=== PATIENT | male | born 1995 | race Caucasian/White ===

== ENCOUNTER 2020-05-06 07:35 | Emergency (ER) | payer OTHER, SELFPAY ==
[2020-05-06 07:36] VITALS: BP 131/65; PULSE 59; RESP 16; TEMP 36.7; O2SAT 99; BMI 23.7
--- NOTE | 2020-05-06 08:13 | ECG_ITS ---
Test Reason : SYNCOPE Blood Pressure : / mmHG Vent. Rate : 048 BPM Atrial Rate : 048 BPM P-R Int : 122 ms QRS Dur : 090 ms QT Int : 466 ms P-R-T Axes : 067 061 040 degrees QTc Int : 416 ms Sinus bradycardia Nonspecific ST abnormality Abnormal ECG No previous ECGs available Referred By: Kassy Monique Electronically Signed By:THAD BERNAL MD
--- NOTE | 2020-05-06 08:14 | ED_ITS ---
HPI - General Adult General Chief complaint: Syncope Stated complaint: syncope Time Seen by Provider: 05/06/20 07:44 Source: patient Mode of arrival: ambulatory Limitations: no limitations History of Present Illness HPI narrative: Patient comes emergency room complaining of a syncopal episode 2 days ago. Patient states he did not eat all day 2 days ago, later on the day he tried eating something before restarting he has syncopal episode. Patient states that he does not believe he hit his head. Patient denies any headache, no blurry vision. Patient states that prior to passing out, he felt shaky, sweaty and remembers blacking out. When he woke up, EMS checked his blood pressure and blood sugar which were within normal limits. Patient declined to come to the hospital at that time. Patient states over last 2 days he has been feeling weak, denies any respiratory symptoms, no vomiting or diarrhea. Patient states that he smokes every day, but he has not been feeling well and therefore not smoking. At this time, patient denies chest pain, shortness of breath, coughing, abdominal pain, no nausea vomiting or diarrhea. Patient overall feeling weak. Patient denies feeling dizzy or weak after standing or sitting up. MD complaint: Weakness, syncopal episode Related Data Previous Rx's Medication Instructions Recorded ondansetron HCl [Zofran] 4 mg PO Q6H PRN #10 tab 05/06/20 Allergies Allergy/AdvReac Type Severity Reaction Status Date / Time No Known Allergies Allergy Verified 05/06/20 07:39 Review of Systems Review of Systems: Constitutional : No Weight loss, No Fever, No Chills, No Night Sweats, complaining of generalized fatigue, no malaise ENT/Mouth : No Hearing loss, No Ear Pain, No Nasal Congestion, No Sinus Pain, No Hoarseness, No sore throat, No Rhinorrhea, No Swallowing Difficulty Eyes: No Eye Pain, No Swelling, No Redness, No Foreign Body, No Discharge, No Vision Changes Cardiovascular : No Chest Pain, No SOB, No Dyspnea on Exertion, No Orthopnea, No Edema, No Palpitations Respiratory : No Cough, No Sputum, No Wheezing, No Smoke Exposure, No Dyspnea Gastrointestinal : No Nausea, No Vomiting, No Diarrhea, No Constipation, No abdominal Pain, No Hematochezia, No Melena Genitourinary : no irregular bleeding, No Dysuria, No Urinary Frequency, No Hematuria, No Urinary Incontinence, No Urgency, No Flank Pain, No Urinary Flow Changes, No Hesitancy Musculoskeletal : No joint pain, No Myalgias, No Joint Swelling Skin : No Skin Lesions, No rash Neuro : Complaining of generalized weakness, No Numbness, No Paresthesias, complaining of 1 episode of syncope approximately 48 hours ago Psych : No Anxiety/Panic, No Depression, No SI/HI/AH/VH, No Social Issues, Heme/Lymph: No Bruising, No Bleeding,No Lymphadenopathy Endocrine : No Polyuria, No Polydipsia, No Temperature Intolerance [facility] Past Medical History Medical History (Updated 05/06/20 @ 09:17 by Kassy Monique MD) Marijuana abuse, continuous No known health problems Social History Social History Alcohol intake: never Smoking Status: Never smoker Use of substances other than those prescribed or required for medical reasons: Yes Substance Use Type: Marijuana Advance Directives: No Advance Directives Information Provided: No Physical Exam Vital Signs: Vital Signs: Last Vital Signs Temp 98.0 F 05/06/20 07:36 Pulse 59 05/06/20 07:36 Resp 16 05/06/20 07:36 BP 131/65 05/06/20 07:36 Pulse Ox 99 05/06/20 07:36 Body Mass Index 23.7 Appearance: Alert. Oriented X3. No acute distress. Eyes: Pupils equal, round and reactive to light. ENT: Pharynx normal. Neck: Normal inspection. Neck supple. No lymph nodes noted. No crepitus CVS: Normal heart rate and rhythm. Pulses normal. Normal S1 and S2 Respiratory: No respiratory distress. Breath sounds normal. No Wheezing. No rales Abdomen: Soft and nontender. No rigidity. No distention. good BS x4 Skin: Skin warm and dry. Normal skin color. Normal skin turgor. Extremities: No lower extremity edema. No lower extremity edema. No Lacerations. No Rash Neuro: Oriented X 3. No motor deficit. No sensory deficit. Moving all extermities. No slurred speech. Course Course Course Narrative: Patient was tested for COVID-19. Results pending. Patient's labs stable. Patient's syncopal episode was likely because he did not eat earlier that day. Since then he has not had recurrent symptoms or syncopal episodes. Medical Decision Making Lab Data Result diagrams: 05/06/20 08:27 05/06/20 08:27 Labs: Lab Results 05/06/20 05/06/20 05/06/20 Range/Units 08:27 08:27 08:33 WBC 8.9 (4.8-10.8) X10*3/uL RBC 5.15 (4.60-5.80) X10*6/uL Hgb 14.8 (14.0-18.0) g/dl Hct 44.6 (42-52) % MCV 86.6 (80-98) fL MCH 28.7 (27.0-33.0) pg MCHC 33.2 (31.0-36.0) g/dl RDW 12.1 (11.0-16.0) % Plt Count 204 (160-400) X10*3/uL MPV 11.2 (9.4-12.4) fL Immature Gran % (Auto) 0.2 (0.0-0.4) % Neut % (Auto) 74.3 H (45-73) % Lymph % (Auto) 17.6 L (20-40) % [place] % (Auto) 6.0 (2-11) % Eos % (Auto) 1.7 (0-4) % Baso % (Auto) 0.2 (0-2) % Lymph # (Auto) 1.6 (1.2-4.9) X10*3/uL [place] # (Auto) 0.5 (0.1-1.2) X10*3/uL Eos # (Auto) 0.2 (0.0-0.4) X10*3/uL Baso # (Auto) 0.0 (0.0-0.2) X10*3/uL Abs Immat Gran (auto) 0.02 (0.00-0.03) X10*3/uL Absolute Neuts (auto) 6.6 (2.0-8.3) X10*3/uL Absolute Nucleated RBC 0.000 (0.0-0.012) X10*3/uL Nucleated RBC % (auto) 0.0 (0.0-0.2) /100WBC Sodium 141 (135-145) mmol/L Potassium 3.9 (3.3-5.1) mmol/l Chloride 105 (96-108) mmol/L Carbon Dioxide 26 (22-29) mmol/L Anion Gap 14 (12-20) BUN 12 (9-16) mg/dL Creatinine 0.84 (0.5-1.4) mg/dL Estim Creat Clear Calc 155.8 Estimated GFR > 60 Random Glucose 93 (60-115) mg/dL Calcium 9.5 (8.4-10.2) mg/dL Urine Color DARK YELLOW Urine Appearance CLEAR Urine pH 5.5 (5.0-8.0) Ur Specific [place] >= 1.030 H (1.005-1.025) Urine Protein TRACE (NEG-TRACE) MG/DL Urine Glucose (UA) NEG (NEG) MG/DL Urine Ketones NEG (NEG) MG/DL Urine Blood NEG (NEG) Urine Nitrite NEG (NEG) Ur Leukocyte Esterase NEG (NEG) ECG Data Attestation: I personally reviewed and interpreted this ECG as follows: (Heart rate 48, sinus bradycardia, QTC 416, no ST segment depressions or elevations) Discharge Plan Discharge Clinical Impression: Syncopal episodes Qualifiers: Syncope type: unspecified Qualified Code(s): R55 - Syncope and collapse Patient Disposition: Home, Self-Care Instructions: Syncope (ED) Additional Instructions: Please follow-up with your primary care physician tomorrow. If you have any worsening or new symptoms, please return to the emergency room or call 911 Prescriptions: New ondansetron HCl [Zofran] 4 mg tablet 4 mg PO Q6H PRN (Reason: nausea and vomiting) Qty: 10 RF: 0 Stand Alone Forms: Work/School Release
[2020-05-06 08:42] LABS: Basophils Percent Auto 0.2 % (0-2); Eosinophils Absolute Auto 0.2 X10*3/uL (0.0-0.4); Eosinophils Percent Auto 1.7 % (0-4); Hematocrit 44.6 % (42-52); Hemoglobin 14.8 g/dl (14.0-18.0); Imm Gran Abs Auto 0.02 X10*3/uL (0.00-0.03); Imm Gran Pct Auto 0.2 % (0.0-0.4); Lymphocytes Absolute Auto 1.6 X10*3/uL (1.2-4.9); Lymphocytes Percent Auto 17.6 % (20-40); MANUAL DIFF FLAG NO; Mean Corpuscular HGB Conc 33.2 g/dl (31.0-36.0); Mean Corpuscular Hemoglobin 28.7 pg (27.0-33.0); Mean Corpuscular Volume 86.6 fL (80-98); Mean Platelet Volume 11.2 fL (9.4-12.4); Monocytes Absolute Auto 0.5 X10*3/uL (0.1-1.2); Neutrophils Absolute Auto 6.6 X10*3/uL (2.0-8.3); Neutrophils Percent Auto 74.3 % (45-73); Platelet Count 204 X10*3/uL (160-400); Red Blood Count 5.15 X10*6/uL (4.60-5.80); Red Cell Distribution Width 12.1 % (11.0-16.0); White Blood Count 8.9 X10*3/uL (4.8-10.8)
[2020-05-06 08:47] LABS: Glucose Urine UA NEG (NEG); Leukocyte Esterase Urine NEG (NEG); Nitrite Urine NEG (NEG); PH 5.5 (5.0-8.0); Specific Gravity - Urine >= 1.030 (1.005-1.025); Urine Blood NEG (NEG); Urine Ketones NEG (NEG); Urine Protein TRACE MG/DL (NEG-TRACE)
[2020-05-06 08:53] LABS: Appearance Urine CLEAR; Color Urine DARK YELLOW
[2020-05-06 09:13] LABS: Anion Gap 14 (12-20); Blood Urea Nitrogen 12 mg/dL (9-16); Calcium 9.5 mg/dL (8.4-10.2); Carbon Dioxide 26 mmol/L (22-29); Chloride 105 mmol/L (96-108); Creatinine Clr Calc Pharmacy 155.8; Estimated Glomerular Filt Rate > 60; Glucose Random 93 mg/dL (60-115); Potassium 3.9 mmol/l (3.3-5.1); Sodium 141 mmol/L (135-145)
[2020-05-06 09:16] LABS: Amphetamine Screen Urine Not Detected (Not Detect); Barbiturates, Urine Not Detected (Not Detect); Benzodiazepines Screen Urine Not Detected (Not Detect); Cannabinoid Screen Urine POSITIVE (Not Detect); Cocaine Screen Urine Not Detected (Not Detect); Opiate Screen Urine Not Detected (Not Detect); Phencyclidine Screen Urine Not Detected (Not Detect)
== END 2020-05-06 09:36 | disposition home or self-care (01) ==
PROVIDERS: Emergency Provider Emergency Medicine
DX: R55 Syncope and collapse (principal); Z79.899 Other long term (current) drug therapy
CPT/HCPCS: 36415; 80048; 80307; 81003; 85025; 93005; 99283; U0003

== ENCOUNTER 2020-07-23 23:37 | Emergency (ER) | payer OTHER, SELFPAY ==
[2020-07-23 23:42] VITALS: BP 144/79; PULSE 75; RESP 17; TEMP 36.7; O2SAT 98; BMI 23.7
--- NOTE | 2020-07-24 00:42 | ED.URI ---
HPI - URI/Sore Throat General Chief Complaint: Upper Respiratory Symptoms Stated Complaint: SOB Time Seen by Provider: 07/24/20 00:31 History of Present Illness HPI Narrative: 25 years old presents today with cough and congestion upper respiratory symptoms. Patient has been having symptoms for last 1-2 days. No nausea no vomiting. No change in smell with fleas. Patient from home. Positive history of asthma. Related Data Previous Rx's Medication Instructions Recorded ondansetron HCl [Zofran] 4 mg PO Q6H PRN #10 tab 05/06/20 Allergies Allergy/AdvReac Type Severity Reaction Status Date / Time No Known Allergies Allergy Verified 07/23/20 23:52 Review of Systems Review of Systems: Constitutional: No Weight loss, No Fever, No Chills, No Night Sweats, No Fatigue, No Malaise ENT/Mouth: No Hearing loss, No Ear Pain, No Nasal Congestion, No Sinus Pain, No Hoarseness, No sore throat, positive Rhinorrhea, No Swallowing Difficulty Eyes: No Eye Pain, No Swelling, No Redness, No Foreign Body, No Discharge, No Vision Changes Cardiovascular: No Chest Pain, No SOB, No Dyspnea on Exertion, No Orthopnea, No Edema, No Palpitations Respiratory: No Cough, No Sputum, No Wheezing, No Smoke Exposure, No Dyspnea Gastrointestinal: No Nausea, No Vomiting, No Diarrhea, No Constipation, No abdominal Pain, No Hematochezia, No Melena Genitourinary: no irregular bleeding, No Dysuria, No Urinary Frequency, No Hematuria, No Urinary Incontinence, No Urgency, No Flank Pain, No Urinary Flow Changes, No Hesitancy Musculoskeletal: No joint pain, No Myalgias, No Joint Swelling Skin: No Skin Lesions, No rash Neuro: No Weakness, No Numbness, No Paresthesias, No Loss of Consciousness, No Dizziness, No Headache Psych: No Anxiety/Panic, No Depression, No SI/HI/AH/VH, No Social Issues, Heme/Lymph: No Bruising, No Bleeding,No Lymphadenopathy Endocrine: No Polyuria, No Polydipsia, No Temperature Intolerance [facility] Past Medical History Attestation statement: The following information was validated with the patient. Medical History Asthma Marijuana abuse, continuous No known health problems Social History Social History Alcohol intake: never Smoking Status: Never smoker Substance Use Type: Marijuana Advance Directives: No Physical Exam Vital Signs: Vital Signs: Last Vital Signs Temp 98.1 F 07/23/20 23:42 Pulse 75 07/23/20 23:42 Resp 17 07/23/20 23:42 BP 144/79 H 07/23/20 23:42 Pulse Ox 98 07/23/20 23:42 Body Mass Index 23.7 Constitutional: No Weight loss, No Fever, No Chills, No Night Sweats, No Fatigue, No Malaise ENT/Mouth: No Hearing loss, No Ear Pain, No Nasal Congestion, No Sinus Pain, No Hoarseness, No sore throat, No Rhinorrhea, No Swallowing Difficulty Eyes: No Eye Pain, No Swelling, No Redness, No Foreign Body, No Discharge, No Vision Changes Cardiovascular: No Chest Pain, No SOB, No Dyspnea on Exertion, No Orthopnea, No Edema, No Palpitations Respiratory: No Cough, No Sputum, No Wheezing, No Smoke Exposure, No Dyspnea Gastrointestinal: No Nausea, No Vomiting, No Diarrhea, No Constipation, No abdominal Pain, No Hematochezia, No Melena Genitourinary: no irregular bleeding, No Dysuria, No Urinary Frequency, No Hematuria, No Urinary Incontinence, No Urgency, No Flank Pain, No Urinary Flow Changes, No Hesitancy Musculoskeletal: No joint pain, No Myalgias, No Joint Swelling Skin: No Skin Lesions, No rash Neuro: No Weakness, No Numbness, No Paresthesias, No Loss of Consciousness, No Dizziness, No Headache Psych: No Anxiety/Panic, No Depression, No SI/HI/AH/VH, No Social Issues, Heme/Lymph: No Bruising, No Bleeding,No Lymphadenopathy Endocrine: No Polyuria, No Polydipsia, No Temperature Intolerance MDM - URI/Sore Throat MDM Narrative Medical decision making narrative: Patient's lungs are clear. O2 sat 99% on room air. Was sent off COVID test. Will have patient follow strict home quarantine into all symptom has resolved. Currently in stable condition. Discharge Plan Discharge Clinical Impression: Upper respiratory infection, COVID-19 Patient Disposition: Home, Self-Care Instructions: COVID-19 (Coronavirus Disease 2019) (ED), Upper Respiratory Infection (ED) Prescriptions: No Action ondansetron HCl [Zofran] 4 mg tablet 4 mg PO Q6H PRN (Reason: nausea and vomiting) Qty: 10 RF: 0 Referrals: Physician,None [Primary Care Provider] - 2 days
[2020-07-24 01:23] LABS: COVID-19 Test Negative (Negative); IDNOW Serial# 9DD0AD1C
== END 2020-07-24 01:14 | disposition home or self-care (01) ==
PROVIDERS: Emergency Provider Emergency Medicine Emergency Medical Services
DX: J06.9 Acute upper respiratory infection, unspecified (principal); Z20.822 Contact with and (suspected) exposure to COVID-19; J45.909 Unspecified asthma, uncomplicated; F12.10 Cannabis abuse, uncomplicated
CPT/HCPCS: 36415; 87635; 99283

== ENCOUNTER 2020-09-02 19:35 | Emergency (ER) | payer OTHER, SELFPAY ==
--- NOTE | ~2020-09-02 | XR_ITS ---
EXAMINATION: XR HAND, LEFT CLINICAL INFORMATION: Injury COMPARISON: None available at the time of this dictation. TECHNIQUE: Frontal lateral obliques views of the hand were obtained. FINDINGS: There is mildly displaced fracture of the base of the fifth metacarpal extending into the articular surface of the carpal metacarpal joint. No other fractures. Bone alignments otherwise satisfactory. XR/XR hand wrist LT IMPRESSION: Mildly displaced intra-articular fracture at the base of the fifth metacarpal.
[2020-09-02 19:38] VITALS: BP 122/62; PULSE 75; RESP 18; TEMP 37.2; O2SAT 97; BMI 22.1
--- NOTE | 2020-09-02 20:41 | ED.EXTPRO ---
HPI - Extremity Problem General Chief complaint: Extremity Injury, Upper Stated complaint: Hand injury Time Seen by Provider: 09/02/20 20:32 Source: patient Mode of arrival: ambulatory Limitations: no limitations History of Present Illness HPI Narrative: Patient comes to emergency room complaining of left hand pain. Patient states earlier today, he lost his temper and punched a metal door. Patient states the pain is on the dorsal aspect of the hand, 4th and 5th finger. No lacerations, no abrasions. Patient did not take any medication for pain control prior to arrival. MD Complaint: extremity pain Related Data Previous Rx's Medication Instructions Recorded ondansetron HCl [Zofran] 4 mg PO Q6H PRN #10 tab 05/06/20 ibuprofen 600 mg PO TID PRN #14 tab 09/02/20 tramadol 50 mg PO BID PRN #7 tab 09/02/20 Allergies Allergy/AdvReac Type Severity Reaction Status Date / Time No Known Allergies Allergy Verified 09/02/20 19:38 Review of Systems Review of Systems: Constitutional : No Weight loss, No Fever, No Chills, No Night Sweats, No Fatigue, No Malaise ENT/Mouth : No Hearing loss, No Ear Pain, No Nasal Congestion, No Sinus Pain, No Hoarseness, No sore throat, No Rhinorrhea, No Swallowing Difficulty Eyes: No Eye Pain, No Swelling, No Redness, No Foreign Body, No Discharge, No Vision Changes Cardiovascular : No Chest Pain, No SOB, No Dyspnea on Exertion, No Orthopnea, No Edema, No Palpitations Respiratory : No Cough, No Sputum, No Wheezing, No Smoke Exposure, No Dyspnea Gastrointestinal : No Nausea, No Vomiting, No Diarrhea, No Constipation, No abdominal Pain, No Hematochezia, No Melena Genitourinary : no irregular bleeding, No Dysuria, No Urinary Frequency, No Hematuria, No Urinary Incontinence, No Urgency, No Flank Pain, No Urinary Flow Changes, No Hesitancy Musculoskeletal : Left hand pain Skin : No Skin Lesions, No rash Neuro : No Weakness, No Numbness, No Paresthesias, No Loss of Consciousness, No Dizziness, No Headache Psych : No Anxiety/Panic, No Depression, No SI/HI/AH/VH, No Social Issues, Heme/Lymph: No Bruising, No Bleeding,No Lymphadenopathy Endocrine : No Polyuria, No Polydipsia, No Temperature Intolerance PMFSH Past Medical History Medical History Asthma Marijuana abuse, continuous Social History Social History Alcohol intake: never Smoking Status: Never smoker Smoked in Last 30 Days: No Use of substances other than those prescribed or required for medical reasons: No Substance Use Type: Marijuana Any prior treatment program specific to substance use: No Advance Directives: No Advance Directives Information Provided: No Physical Exam Vital Signs: Vital Signs: Last Vital Signs Temp 99 F 09/02/20 19:38 Pulse 75 09/02/20 19:38 Resp 18 09/02/20 19:38 BP 122/62 09/02/20 19:38 Pulse Ox 97 09/02/20 19:38 Body Mass Index 22.1 Appearance: Alert. Oriented X3. No acute distress. Eyes: Pupils equal, round and reactive to light. ENT: Pharynx normal. Neck: Normal inspection. Neck supple. No lymph nodes noted. No crepitus CVS: Normal heart rate and rhythm. Pulses normal. Normal S1 and S2 Respiratory: No respiratory distress. Breath sounds normal. No Wheezing. No rales Abdomen: Soft and nontender. No rigidity. No distention. good BS x4 Skin: Skin warm and dry. Normal skin color. Normal skin turgor. Extremities: No lower extremity edema. Left hand mildly swollen on the dorsal aspect, pain to palpation over the 4th and 5th metacarpals, patient is able to flex and extend all fingers Neuro: Oriented X 3. No motor deficit. No sensory deficit. Moving all extermities. No slurred speech. Course Course Course Narrative: I discussed the x-ray with the patient, patient does have a mildly displaced intra-articular fracture at the base of the 5th metacarpal. Patient provided with a splint, pain medication, patient will follow-up with orthopedics. At this time, reduction is not indicated since the displacement is very mild MDM - Extremity (Nontraumatic) Imaging Data Hand x-ray: Radiologist's impression: There is mildly displaced fracture of the base of the fifth metacarpal extending into the articular surface of the carpal metacarpal joint. No other fractures. Bone alignments otherwise satisfactory. XR/XR hand wrist LT IMPRESSION: Mildly displaced intra-articular fracture at the base of the fifth metacarpal. Discharge Plan Discharge Clinical Impression: Fracture of metacarpal base of left hand, closed Qualifiers: Encounter type: initial encounter Metacarpal bone: fifth Patient Disposition: Home, Self-Care Instructions: Hand Fracture (ED) Additional Instructions: Please follow-up with Orthopedics, call to schedule an appointment. Please follow-up with your primary care physician tomorrow. If you have any worsening or new symptoms, please return to the emergency room or call 911 Prescriptions: New ibuprofen 600 mg tablet 600 mg PO TID PRN (Reason: pain) Qty: 14 RF: 0 tramadol 50 mg tablet 50 mg PO BID PRN (Reason: pain) Qty: 7 RF: 0 No Action ondansetron HCl [Zofran] 4 mg tablet 4 mg PO Q6H PRN (Reason: nausea and vomiting) Qty: 10 RF: 0
[2020-09-02] MEDS: Ibuprofen 600 MG TABLET PO (21:31)
--- NOTE | 2020-09-02 22:14 | PC.NURSE ---
applied volar splint 22:15 depillr, patient CSMs all normal.
--- NOTE | 2020-09-02 22:30 | PC.NURSE ---
pt is driving and dose not have a ride home pt given script for tramodol to fill at pharmacy.
== END 2020-09-02 22:42 | disposition home or self-care (01) ==
PROVIDERS: Emergency Provider Emergency Medicine
DX: S62.607A Fracture of unspecified phalanx of left little finger, initial encounter for closed fracture (principal); S62.307A Unspecified fracture of fifth metacarpal bone, left hand, initial encounter for closed fracture; M79.642 Pain in left hand; M25.532 Pain in left wrist; F12.90 Cannabis use, unspecified, uncomplicated; X58.XXXA Exposure to other specified factors, initial encounter; Y93.9 Activity, unspecified; Y92.009 Unspecified place in unspecified non-institutional (private) residence as the place of occurrence of the external cause; Y99.9 Unspecified external cause status; Z79.899 Other long term (current) drug therapy
CPT/HCPCS: 29130; 73110; 73130; 99284

== ENCOUNTER 2020-09-05 09:21 | Outpatient (REF) | payer OTHER, SELFPAY ==
--- NOTE | ~2020-09-05 | XR_ITS ---
EXAMINATION: XR HAND, LEFT CLINICAL INFORMATION: Pain COMPARISON: Previous x-ray 09/02/2020 TECHNIQUE: PA, lateral, and oblique views of the left hand. FINDINGS: There is a fracture through the base of the fifth metacarpal bone. This appears comminuted, minimally displaced and intra-articular with the fifth PENITENTIARY joint. This is unchanged from recent x-ray. No other fracture is seen. Soft tissues are unremarkable. XR/XR hand LT min 3V IMPRESSION: No change in fracture of the base of the left fifth metacarpal bone from recent exam.
== END 2020-09-05 09:22 | disposition home or self-care (01) ==
LOC: HO.HOSX 09:21
PROVIDERS: Visit Provider Orthopaedic Surgery
DX: S62.317A Displaced fracture of base of fifth metacarpal bone, left hand, initial encounter for closed fracture (principal)
CPT/HCPCS: 73130; 99202

== ENCOUNTER 2020-09-08 18:19 | Emergency (ER) | payer OTHER, SELFPAY | END 2020-09-08 19:00 | disposition left against medical advice (07) | PROVIDERS: Emergency Provider Emergency Medicine | DX: R51.9 Headache, unspecified (principal) ==

== ENCOUNTER 2020-09-09 14:12 | Emergency (ER) | payer OTHER, SELFPAY ==
[2020-09-09 14:16] VITALS: BP 115/70; PULSE 54; RESP 17; TEMP 36.3; O2SAT 95; BMI 22.6
--- NOTE | 2020-09-09 14:49 | ECG_ITS ---
Test Reason : DIZZINESS Blood Pressure : / mmHG Vent. Rate : 056 BPM Atrial Rate : 056 BPM P-R Int : 122 ms QRS Dur : 092 ms QT Int : 440 ms P-R-T Axes : 048 050 022 degrees QTc Int : 424 ms Sinus bradycardia Otherwise normal ECG When compared with ECG of 06-MAY-2020 08:18, No significant change was found Referred By: Bob Hudson Electronically Signed By:Kit Guaman
--- NOTE | 2020-09-09 15:02 | ED.GENADULT ---
HPI - General Adult General Chief complaint: General Medical Stated complaint: DIZZY Time Seen by Provider: 09/09/20 14:43 Source: patient Mode of arrival: ambulatory Limitations: no limitations History of Present Illness HPI narrative: Patient presents to ED for dizziness described as nausea. Patient states he has been stressed and is not eating in the past 2 days. Patient yesterday passed out in the nolan in the chair because he did not eat all day. Patient denies hitting head on the ground. Patient denies ever having chest pain, shortness of breath, abdominal pain. Patient denies any neck pain, headache, photophobia, flank pain, fever, or chills. Related Data Home Medications Medication Instructions Recorded Confirmed omeprazole 20 mg capsule,delayed 20 mg PO DAILY 09/05/20 release Previous Rx's Medication Instructions Recorded ondansetron HCl [Zofran] 4 mg PO Q6H PRN #10 tab 05/06/20 ibuprofen 600 mg PO TID PRN #14 tab 09/02/20 tramadol 50 mg PO BID PRN #7 tab 09/02/20 Allergies Allergy/AdvReac Type Severity Reaction Status Date / Time No Known Allergies Allergy Verified 09/02/20 19:38 Review of Systems Review of Systems: Yes all other systems are reviewed and are negative Constitutional: Constitutional: Reports as per HPI and Reports no additional constitutional complaints Eyes: Eyes: Reports as per HPI and Reports no additional eye complaints ENT: Reports system reviewed and no additional complaints, except as documented, Reports as per HPI and Reports dizziness Cardiovascular: Cardiovascular: Reports as per HPI and Reports no additional cardiovascular complaints Respiratory: Respiratory: Reports as per HPI and Reports no additional respiratory complaints Gastrointestinal: Gastrointestinal: Reports as per HPI and Reports no additional gastrointestinal complaints Genitourinary: Genitourinary: Reports no additional male genitourinary complaints and Reports as per HPI Musculoskeletal: Musculoskeletal: Reports no additional musculoskeletal complaints and Reports as per HPI Neurologic: Reports system reviewed and no additional complaints, except as documented, Reports as per HPI and Reports dizziness Psychiatric: Psychiatric: Reports no additional psychiatric complaints and Reports as per HPI [facility] Past Medical History Medical History Asthma Marijuana abuse, continuous Social History Social History (Updated 09/05/20 @ 11:00 by Ambika Andersen CMA) Alcohol intake: never Smoking Status: Never smoker Substance Use Type: Marijuana Advance Directives: Yes Advance Directives Information Provided: No Advance Directives on File: No Current occupational status: employed 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 Vital Signs: Vital Signs: Last Vital Signs Temp 97.4 F 09/09/20 16:52 Pulse 63 09/09/20 16:52 Resp 18 09/09/20 16:52 BP 127/72 09/09/20 16:52 Pulse Ox 98 09/09/20 16:52 Body Mass Index 22.6 Const: General: cooperative, healthy appearing, comfortable, no acute distress, well developed, alert, awake and Physically active Orientation/consciousness: patient oriented x3 HENMT: Head: Yes normal to inspection, Yes No palpable skull fracture present, Yes normocephalic, Yes atraumatic and No abrasion Eyes: Other: Negative nystagmus General: appearance normal, both eyes and all related structures Neck: Neck: Yes normal visual inspection, Yes full ROM, Yes no lymphadenopathy, Yes no meningeal signs, Yes trachea midline, Yes supple and No tender Chest: Chest palpation & inspection: normal inspection of the chest and normal palpation of entire chest wall Resp: Effort & Inspection: normal respiratory effort and able to speak in complete sentences Auscultation: clear to auscultation bilaterally Cardio: Jugular venous distension: no JVD Heart sounds: S1 normal heart sound present and S2 normal heart sound present GI: Inspection: Yes normal to inspection and No abdominal wall ecchymosis Palpation (GI): Soft to palpation, not firm, nontender, no guarding and not rigid : General: No CVA tenderness and Yes no CVA tenderness Back/Spine/Pelvis: Back: no CVA tenderness, No CVA tenderness and No back tenderness Skin: General skin exam: no rashes or lesions noted and elasticity normal Neuro: Other: Negative facial droop. Negative slurred speech. All extremities equal strength 5+. [id number] and rapid hand movement intact. Negative Romberg General: patient oriented x3, no meningeal signs and CN's II-XI intact bilaterally Cranial nerves: Yes CN's II-XII intact bilaterally Extrem: General: Yes normal to inspection and Yes full ROM Psych: Appearance: grossly normal, well kempt and not disheveled Course Course Course Narrative: History physical exam indicate vasovagal syncope/dizziness. Patient will have labs, EKG, fluids ordered. Patient given Zofran for nausea. Reevaluation(s) Reevaluation #1: Patient states he feels better and is no longer nauseous. Patient no longer feels dizzy. . Troponin negative. EKG negative for STEMI. D-dimer negative. Perc score is 0. No indication for head CT scan. Patient did not have any trauma to the head. Negative for any neuro deficit. Patient's orthostatics negative. Medical Decision Making MDM Narrative Medical decision making narrative: Vasovagal syncope. Dizziness Lab Data Result diagrams: 09/09/20 15:13 09/09/20 15:13 Labs: Lab Results 09/09/20 09/09/20 09/09/20 Range/Units 15:13 15:13 15:13 WBC 10.7 (4.8-10.8) X10*3/uL RBC 5.35 (4.60-5.80) X10*6/uL Hgb 15.3 (14.0-18.0) g/dl Hct 46.0 (42-52) % MCV 86.0 (80-98) fL MCH 28.6 (27.0-33.0) pg MCHC 33.3 (31.0-36.0) g/dl RDW 12.2 (11.0-16.0) % Plt Count 205 (160-400) X10*3/uL MPV 11.3 (9.4-12.4) fL Immature Gran % (Auto) 0.2 (0.0-0.4) % Neut % (Auto) 81.8 H (45-73) % Lymph % (Auto) 11.2 L (20-40) % Eddy % (Auto) 4.0 (2-11) % Eos % (Auto) 2.5 (0-4) % Baso % (Auto) 0.3 (0-2) % Lymph # (Auto) 1.2 (1.2-4.9) X10*3/uL Eddy # (Auto) 0.4 (0.1-1.2) X10*3/uL Eos # (Auto) 0.3 (0.0-0.4) X10*3/uL Baso # (Auto) 0.0 (0.0-0.2) X10*3/uL Abs Immat Gran (auto) 0.02 (0.00-0.03) X10*3/uL Absolute Neuts (auto) 8.7 H (2.0-8.3) X10*3/uL Absolute Nucleated RBC 0.000 (0.0-0.012) X10*3/uL Nucleated RBC % (auto) 0.0 (0.0-0.2) /100WBC PT 14.1 H (10.8-13.0) SEC INR 1.2 H (0.9-1.1) APTT 35.9 (24.1-38.0) SEC D-Dimer < 200 NG/ML Sodium 142 (135-145) mmol/L Potassium 3.8 (3.3-5.1) mmol/L Chloride 105 (96-108) mmol/L Carbon Dioxide 26 (22-29) mmol/L Anion Gap 15 (12-20) BUN 11 (9-16) mg/dL Creatinine 0.88 (0.5-1.4) mg/dL Estim Creat Clear Calc 143.4 Estimated GFR > 60 Random Glucose 76 (60-115) mg/dL Calcium 10.0 (8.4-10.2) mg/dL Total Bilirubin 0.6 (0.0-1.0) mg/dL Direct Bilirubin 0.2 (0.0-0.5) mg/dL AST 16 (5-37) U/L ALT 18 (0-40) U/L Alkaline Phosphatase 102 (39-117) U/L Total Creatine Kinase 97 (38-174) U/L Troponin I High Sens (<3.5-35.0) ng/L Total Protein 7.8 (6.5-8.0) g/dL Albumin 5.1 H (3.5-5.0) g/dL Lipase 6 L (8-78) U/L // Range/Units 15:13 WBC (4.8-10.8) X10*3/uL RBC (4.60-5.80) X10*6/uL Hgb (14.0-18.0) g/dl Hct (42-52) % MCV (80-98) fL MCH (27.0-33.0) pg MCHC (31.0-36.0) g/dl RDW (11.0-16.0) % Plt Count (160-400) X10*3/uL MPV (9.4-12.4) fL Immature Gran % (Auto) (0.0-0.4) % Neut % (Auto) (45-73) % Lymph % (Auto) (20-40) % Eddy % (Auto) (2-11) % Eos % (Auto) (0-4) % Baso % (Auto) (0-2) % Lymph # (Auto) (1.2-4.9) X10*3/uL Eddy # (Auto) (0.1-1.2) X10*3/uL Eos # (Auto) (0.0-0.4) X10*3/uL Baso # (Auto) (0.0-0.2) X10*3/uL Abs Immat Gran (auto) (0.00-0.03) X10*3/uL Absolute Neuts (auto) (2.0-8.3) X10*3/uL Absolute Nucleated RBC (0.0-0.012) X10*3/uL Nucleated RBC % (auto) (0.0-0.2) /100WBC PT (10.8-13.0) SEC INR (0.9-1.1) APTT (24.1-38.0) SEC D-Dimer NG/ML Sodium (135-145) mmol/L Potassium (3.3-5.1) mmol/L Chloride (96-108) mmol/L Carbon Dioxide (22-29) mmol/L Anion Gap (12-20) BUN (9-16) mg/dL Creatinine (0.5-1.4) mg/dL Estim Creat Clear Calc Estimated GFR Random Glucose (60-115) mg/dL Calcium (8.4-10.2) mg/dL Total Bilirubin (0.0-1.0) mg/dL Direct Bilirubin (0.0-0.5) mg/dL AST (5-37) U/L ALT (0-40) U/L Alkaline Phosphatase (39-117) U/L Total Creatine Kinase (38-174) U/L Troponin I High Sens < 3.5 (<3.5-35.0) ng/L Total Protein (6.5-8.0) g/dL Albumin (3.5-5.0) g/dL Lipase (8-78) U/L ECG Data Interpretation: Sinus bradycardia. Ventricular rate 56.. One hundred twenty-two. QRS 92. QTC 424. Discharge Plan Discharge Clinical Impression: Syncope, vasovagal, Dizziness Patient Disposition: Home, Self-Care Instructions: Syncope (ED), Dizziness (ED) Additional Instructions: Return to ED for any chest pain, shortness of breath, headache, dizziness, abdominal pain, swelling of lower extremity, calf pain, fever, chills, weakness, slurred speech, facial droop, paralysis of extremities, or any other concerning symptoms. Please follow-up with PCP. Prescriptions: No Action ondansetron HCl [Zofran] 4 mg tablet 4 mg PO Q6H PRN (Reason: nausea and vomiting) Qty: 10 RF: 0 ibuprofen 600 mg tablet 600 mg PO TID PRN (Reason: pain) Qty: 14 RF: 0 tramadol 50 mg tablet 50 mg PO BID PRN (Reason: pain) Qty: 7 RF: 0 Stand Alone Forms: Work/School Release Print Language: Singaporean
[2020-09-09 15:21] LABS: MANUAL DIFF FLAG NO
[2020-09-09 15:22] LABS: Basophils Percent Auto 0.3 % (0-2); Eosinophils Absolute Auto 0.3 X10*3/uL (0.0-0.4); Eosinophils Percent Auto 2.5 % (0-4); Hemoglobin 15.3 g/dl (14.0-18.0); Imm Gran Abs Auto 0.02 X10*3/uL (0.00-0.03); Imm Gran Pct Auto 0.2 % (0.0-0.4); Lymphocytes Absolute Auto 1.2 X10*3/uL (1.2-4.9); Lymphocytes Percent Auto 11.2 % (20-40); Mean Corpuscular HGB Conc 33.3 g/dl (31.0-36.0); Mean Corpuscular Hemoglobin 28.6 pg (27.0-33.0); Mean Platelet Volume 11.3 fL (9.4-12.4); Monocytes Absolute Auto 0.4 X10*3/uL (0.1-1.2); Neutrophils Absolute Auto 8.7 X10*3/uL (2.0-8.3); Neutrophils Percent Auto 81.8 % (45-73); Platelet Count 205 X10*3/uL (160-400); Red Blood Count 5.35 X10*6/uL (4.60-5.80); Red Cell Distribution Width 12.2 % (11.0-16.0); White Blood Count 10.7 X10*3/uL (4.8-10.8)
[2020-09-09] MEDS: 0.9 % Sodium Chloride 1,000 ML 999 ML IV (15:25)
[2020-09-09] MEDS: ondansetron HCL 4 MG/2 ML VIAL IVPUSH (15:25)
[2020-09-09 15:55] LABS: Alanine Aminotransferase 18 U/L (0-40); Albumin Level 5.1 g/dL (3.5-5.0); Alkaline Phosphatase 102 U/L (39-117); Anion Gap 15 (12-20); Aspartate Amino Transferase 16 U/L (5-37); Bilirubin Direct 0.2 mg/dL (0.0-0.5); Bilirubin Total 0.6 mg/dL (0.0-1.0); Blood Urea Nitrogen 11 mg/dL (9-16); Carbon Dioxide 26 mmol/L (22-29); Chloride 105 mmol/L (96-108); Creatinine Clr Calc Pharmacy 143.4; Estimated Glomerular Filt Rate > 60; Glucose Random 76 mg/dL (60-115); Lipase 6 U/L (8-78); Potassium 3.8 mmol/L (3.3-5.1); Sodium 142 mmol/L (135-145); Total Protein 7.8 g/dL (6.5-8.0)
[2020-09-09 16:00] LABS: D Dimer < 200 NG/ML
[2020-09-09 16:01] LABS: Troponin-I High Sensitivity < 3.5 ng/L (<3.5-35.0)
[2020-09-09 16:38] LABS: INTERNATIONAL NORM RATIO 1.2 (0.9-1.1); Prothrombin Time 14.1 SEC (10.8-13.0)
[2020-09-09 16:41] LABS: Partial Thromboplastin Time 35.9 SEC (24.1-38.0)
[2020-09-09 16:51] VITALS: BP 114/72; BP 115/55; PULSE 54; PULSE 55
[2020-09-09 16:52] VITALS: BP 127/72; PULSE 63; RESP 18; TEMP 36.3; O2SAT 98
== END 2020-09-09 18:02 | disposition home or self-care (01) ==
PROVIDERS: Physician Assistant; Emergency Provider Emergency Medicine
DX: R55 Syncope and collapse (principal); R42 Dizziness and giddiness; F43.9 Reaction to severe stress, unspecified; Z79.899 Other long term (current) drug therapy
CPT/HCPCS: 36415; 80053; 80076; 82248; 82550; 83690; 84484; 85025; 85379; 85610; 85730; 93005; 96365; 96375; 99283; J2405

== ENCOUNTER 2020-09-11 06:55 | Day surgery (SDC) | payer OTHER, SELFPAY ==
--- NOTE | 2020-09-10 08:49 | HO.ANESPROP2 ---
Documented by User: Sadia Drummond 09/10/20 08:51 HPI - Anesthesia Eval Consult details Narrative: 25yo M for Left 5th Metacarpal ORIF vs CRPP with Ulnar Nerve Block Seen in [facility] [place] [facility] [place] for dizziness/syncope. W/U negative. Likely stress/vasovagal. D/C'd home without further f/u. PMFSH Active Problems Active Problems: All Active Problems (Updated 09/10/20 @ 00:01 by Annie Shaw) Fracture of base of fifth metacarpal bone of left hand (Acute) COVID-19 (Acute) Past Medical History Medical History Asthma GERD (gastroesophageal reflux disease) Marijuana abuse, continuous Surgical History Surgical History No history of previous surgery Social History Social History Alcohol intake: never Smoking Status: Never smoker Use of substances other than those prescribed or required for medical reasons: Yes Substance Use Type: Marijuana Substance Use Frequency: Daily Are you DNR?: No Advance Directives: No Advance Directives Information Provided: Yes Current occupational status: employed 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 Rate : 056 BPM Atrial Rate : 056 BPM P-R Int : 122 ms QRS Dur : 092 ms QT Int : 440 ms P-R-T Axes : 048 050 022 degrees QTc Int : 424 ms Sinus bradycardia Otherwise normal ECG When compared with ECG of 06-MAY-2020 08:18, No significant change was found Assessment and Plan Assessment Anesthesia Assessment: Chart Reviewed Documented by User: Roselia Patel 09/11/20 08:52 PMFSH Past Medical History Medical History Asthma GERD (gastroesophageal reflux disease) Marijuana abuse, continuous Surgical History Surgical History No history of previous surgery Social History Social History Alcohol intake: never Smoking Status: Never smoker Use of substances other than those prescribed or required for medical reasons: Yes Substance Use Type: Marijuana Substance Use Frequency: Daily Are you DNR?: No Advance Directives: No Advance Directives Information Provided: Yes Current occupational status: employed 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 Discussed and Chart Reviewed Final Anesthetic Review NPO: Yes ASA Class: II Final Preanesthetic Review: No Changes in Pt Med Stat, Meds/Allgs Chart Reviewed, Consent Obtained/Reviewed and Anes Risks/Benef Reviewed Patient Risk: Low Procedure Risk: Low Assessment/Block/Sedation in SS: Assess/Block/Sedation-SS Anesthetic Plan Anesthetic Plan: GA
[2020-09-11] VITALS (8 sets, daily range): BP systolic 80–135; BP diastolic 35–71; PULSE 44–58; RESP 16–18; TEMP 36.7–36.9; O2SAT 98–100; BMI 22.4
--- NOTE | ~2020-09-11 | FL_ITS ---
EXAMINATION: XR FLUOROSCOPY WITH IMAGES CLINICAL INFORMATION: Fracture base fifth metacarpal COMPARISON: Radiographs left hand 09/05/2020 TECHNIQUE: Fluoroscopy performed by Dr. Randi Hammer. Fluoroscopy time: 49 seconds DAP: 21.84 mGycm2 Images: 3 FINDINGS: Fracture base fifth metacarpal is reduced with metallic orthopedic pin. Fracture fragments in near-anatomic alignment. FL/FL guidance in OR IMPRESSION: Status post reduction fracture base fifth metacarpal.
[2020-09-11] MEDS: Lactated Ringers 1,000 ML 100 ML IVCONT (07:42)
--- NOTE | 2020-09-11 09:04 | MHC.SHP ---
Pre-Procedural Eval Section B Chief Complaint: fx of fifth metacarpal Allergies: Allergies Allergy/AdvReac Type Severity Reaction Status Date / Time No Known Allergies Allergy Verified 09/11/20 07:07 Plan I have reviewed the history and physical and performed a pertinent physical examination on my patient. No changes have occurred unless specified.
--- NOTE | 2020-09-11 09:04 | W.PM.OPN ---
Operative Note Operative Note Date of Service: 09/11/20 Narrative: Operative Note Narrative: Preop diagnosis: 1. Left 5th Metacarpal base fracture Postop diagnosis: Same Procedure: 1. Left 5th Metacarpal fracture closed reduction percutaneous pinning 2. Ulnar nerve block Surgeon: Randi Hammer MD Anesthesia: General Findings: Metacarpal fracture Implants: 0.062 K-wires times 1 Tourniquet time: None EBL: Minimal Specimen: None Drains: None Complications: None Disposition: Brought to the recovery room in stable condition Plan: Follow-up in 10-14 days for a wound check, postop radiographs and for placement in a short-arm cast or splint Anticipate K-wire removal in 4 weeks based on interval bony healing Educate the patient that full fracture healing anticipated in approximately 8-12 weeks. Indications: The patient is 25 years old with a left 5th metacarpal base fracture . The risks and benefits of operative treatment, including but not limited to risk of damage to blood vessels, nerves, tendons, infection, recurrence, delayed or nonunion of fracture, persistent pain or numbness, incomplete resolution of preoperative symptoms, or need for further surgery were discussed with the patient and they wished to proceed with surgery. Procedure: Once consent was obtained patient was brought back to the operating suite and placed in the operating table in a supine position. . Perioperative antibiotics and general anesthesia was administered by the anesthesia team. A tourniquet was applied to the proximal aspect of the left upper extremity and the limb was prepped and draped in a standard surgical fashion. Tourniquet was not inflated during the case. The FluoroScan was used during the case to assist with our fracture reduction and placement of all implants. A closed reduction was performed on the patient's left 5th metacarpal shaft fracture. While applying some gentle traction to the 5th metacarpal I passed a 0.062 K-wire from the ulnar aspect of the 5th metacarpal across and into the 4th metacarpal base. Fracture alignment was assessed for both angular and rotational malalignment. Once satisfied with our fracture reduction and implant placement, the K-wires were bent and cut short and pin caps applied. Final fluoroscopic images were then obtained. The wounds were copiously irrigated with normal saline. An ulnar nerve block was then performed by infiltrating about the ulnar nerve at the wrist with some 0.25% plain Marcaine for postop pain control. A Sterile dressing and short volar splint was applied. The patient appears to have tolerated the procedure well and with no complications. All digits were well vascularized at the conclusion of the case.
[2020-09-11] MEDS: ondansetron HCL 4 MG/2 ML VIAL IVPUSH (11:18)
== END 2020-09-11 11:43 ==
LOC: HO.SSS 06:55
PROVIDERS: Visit Provider Orthopaedic Surgery
PROC: (CPT 26615; principal; 2020-09-11 08:40)
DX: S62.317A Displaced fracture of base of fifth metacarpal bone, left hand, initial encounter for closed fracture (principal); F12.10 Cannabis abuse, uncomplicated; J45.909 Unspecified asthma, uncomplicated
CPT/HCPCS: 26608; J0690; J1100; J2250; J2405; J3010

== ENCOUNTER 2020-09-25 08:11 | Outpatient (REF) | payer SELFPAY ==
--- NOTE | ~2020-09-25 | XR_ITS ---
EXAMINATION: XR HAND, LEFT CLINICAL INFORMATION: Pain. COMPARISON: None TECHNIQUE: Four views of the left hand. FINDINGS: There is a K wire can across the base of the third fourth and fifth metacarpal bones. There is a minimally displaced fracture of the base of the fifth metacarpal bone. No other fracture is seen. Joint spaces are otherwise normal. Soft tissues are normal. XR/XR hand LT min 3V IMPRESSION: K wire obtained through the base of the third fourth and fifth metacarpal bones. Minimally displaced fracture of the base of the fifth metacarpal bone.
== END 2020-09-25 08:12 | disposition home or self-care (01) ==
LOC: HO.HOSX 08:11
PROVIDERS: Visit Provider Orthopaedic Surgery
DX: M79.642 Pain in left hand (principal)
CPT/HCPCS: 73130

== ENCOUNTER → 2020-09-25 09:37 | Outpatient (BNVA) | payer OTHER, SELFPAY | PROVIDERS: Visit Provider Orthopaedic Surgery | DX: Z13.89 Encounter for screening for other disorder (principal) | CPT/HCPCS: 99212 ==

== ENCOUNTER 2020-10-09 08:34 | Outpatient (REF) | payer OTHER, SELFPAY ==
--- NOTE | ~2020-10-09 | XR_ITS ---
EXAMINATION: XR HAND, LEFT CLINICAL INFORMATION: Fracture base 5th metacarpal. Followup. COMPARISON: Fluoroscopic spot views 09/11/2020, radiographs left hand 09/05/2020 TECHNIQUE: PA, lateral, and oblique views of the left hand. FINDINGS: Fracture base 5th metacarpal is reduced with single metallic pin. Hardware is intact. Fracture is unchanged in alignment from prior post-reduction film. Fracture lines no longer clearly visualized. No dislocation or destructive process. Remainder of bony structures are unremarkable. XR/XR hand LT min 3V IMPRESSION: Fracture unchanged in alignment from prior post-reduction images. Fracture lines no longer clearly visualized. Hardware intact.
== END 2020-10-09 08:35 | disposition home or self-care (01) ==
LOC: HO.HOSX 08:34
PROVIDERS: Visit Provider Orthopaedic Surgery
DX: S62.317D Displaced fracture of base of fifth metacarpal bone, left hand, subsequent encounter for fracture with routine healing (principal); X58.XXXD Exposure to other specified factors, subsequent encounter
CPT/HCPCS: 73130; 99212

== ENCOUNTER → 2020-11-28 13:55 | Outpatient (BNVA) | payer OTHER, SELFPAY | PROVIDERS: Visit Provider Orthopaedic Surgery | DX: S62.317D Displaced fracture of base of fifth metacarpal bone, left hand, subsequent encounter for fracture with routine healing (principal) | CPT/HCPCS: 99212 ==

== ENCOUNTER 2021-02-02 16:27 | Emergency (ER) | payer OTHER, SELFPAY ==
[2021-02-02 16:35] VITALS: BP 122/60; PULSE 56; RESP 16; TEMP 36.7; O2SAT 100; BMI 22.4
--- NOTE | 2021-02-02 18:17 | ED.NECK ---
HPI - Neck Pain/Injury General Chief Complaint: Neck Pain/Injury Stated Complaint: Neck pain Time Seen by Provider: 02/02/21 17:50 Source: patient and artificial inseminator Mode of arrival: ambulatory Limitations: no limitations and language barrier History of Present Illness HPI Narrative: 25-year-old male here with complaints of right-sided neck pain and swelling for several days. Patient tells me that he has had recurrent pharyngitis over the last year and has been seen by ear nose and throat doctor. He has been on several courses of penicillin. He also had a in office laryngoscopy which he tells me was normal. He was then referred to physical therapy as his complaints were thought to be muscular which he is currently doing. Yesterday was day 3. Last night he noticed some swelling and pain to the right side of his neck. He denies any cough, runny nose, nasal congestion, fevers, chills, headache. He does report a mild sore throat. No difficulty swallowing. No weight loss, night sweats. Related Data Home Medications Medication Instructions Recorded Confirmed omeprazole 20 mg capsule,delayed 20 mg PO DAILY 09/05/20 release Previous Rx's Medication Instructions Recorded ondansetron HCl 4 mg tablet 4 mg PO Q6H PRN #10 tab 05/06/20 (Zofran) ibuprofen 600 mg tablet 600 mg PO TID PRN #14 tab 09/02/20 tramadol 50 mg tablet 50 mg PO BID PRN #7 tab 09/02/20 hydrocodone 5 mg-acetaminophen 325 1 - 2 tab PO Q6H PRN #10 tab 09/11/20 mg tablet amoxicillin 500 mg tablet 500 mg PO BID #20 tab 02/02/21 ibuprofen 600 mg tablet 600 mg PO Q8H PRN #20 tab 02/02/21 Allergies Allergy/AdvReac Type Severity Reaction Status Date / Time No Known Allergies Allergy Verified 10/09/20 09:30 Review of Systems Review of Systems: Yes all other systems are reviewed and are negative Constitutional: Constitutional: Reports no additional constitutional complaints, Denies body ache(s), Denies chills, Denies fever(s), Denies headache(s) and Denies weakness Eyes: Eyes: Reports no additional eye complaints and Denies change in vision ENT: Reports system reviewed and no additional complaints, except as documented, Denies dizziness, Denies headache(s), Denies nasal congestion, Denies nasal discharge, Reports neck pain and Reports sore throat Cardiovascular: Cardiovascular: Reports no additional cardiovascular complaints, Denies chest pain, Denies leg edema and Denies dyspnea Respiratory: Respiratory: Reports no additional respiratory complaints, Denies cough and Denies dyspnea Gastrointestinal: Gastrointestinal: Reports no additional gastrointestinal complaints, Denies abdominal pain, Denies diarrhea, Denies nausea and Denies vomiting Genitourinary: Genitourinary: Denies urinary incontinence Musculoskeletal: Musculoskeletal: Reports no additional musculoskeletal complaints, Denies back pain, Denies arthralgias, Denies joint swelling, Reports neck pain, Denies numbness and Denies tingling Integumentary/Breasts: Skin/Breast: Reports system reviewed and no additional complaints, except as docu and Denies rash Neurologic: Reports system reviewed and no additional complaints, except as documented, Denies Abnormal speech present, Denies dizziness, Denies headache(s), Denies numbness, Denies tingling and Denies weakness PMFSH Past Medical History Attestation statement: The following information was validated with the patient. 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 Vital Signs: Vital Signs: Last Vital Signs Temp 98.0 F 02/02/21 16:35 Pulse 56 02/02/21 16:35 Resp 16 02/02/21 16:35 BP 122/60 02/02/21 16:35 Pulse Ox 100 02/02/21 16:35 Body Mass Index 22.4 Const: General: cooperative, healthy appearing, comfortable and no acute distress Orientation/consciousness: patient oriented x3 Limitations: no limitations HENMT: Head: Yes normal to inspection Ears: hearing grossly normal bilaterally and TM's normal bilaterally General nose exam: Normal external nose present Face and sinus: Yes normal facial exam Mouth: Normal oral and palatal mucosa present Throat: Yes posterior oropharynx normal, Yes tonsils normal and Yes uvula midline Eyes: General: appearance normal, both eyes and all related structures Pupils: Equal, round and reactive pupils present Neck: Other: To the right neck there is a single sub mandibular lymph node noted. Mild tenderness. No redness or warmth. Neck: Yes normal visual inspection, Yes full ROM and Yes no meningeal signs Chest: Chest palpation & inspection: normal inspection of the chest Resp: Effort & Inspection: normal respiratory effort Auscultation: clear to auscultation bilaterally Cardio: Rate: regular rate Rhythm: regular rhythm Peripheral pulses: Peripheral pulses 2+ throughout GI: Inspection: Yes normal to inspection Palpation (GI): Soft to palpation and nontender Auscultation: normal bowel sounds Back/Spine/Pelvis: Thoracic/Lumbar Spine: thoracic and lumbar spine normal to inspection Skin: General skin exam: no rashes or lesions noted Neuro: General: patient oriented x3, no meningeal signs, no focal motor deficits and normal sensation to monofilament Cranial nerves: Yes Equal, round and reactive pupils present Cognition (Neuro): normal cognition Speech: No Abnormal speech present Gait exam (Neuro): Normal gait present Motor exam (neuro): 5/5 motor strength present throughout Extrem: General: Yes normal to inspection Course Course Course Narrative: Swollen right-sided lymphadenopathy with a single node. No URI symptoms. Patient has had recurrent pharyngitis over the last year treated with penicillin and seen by ENT. Will treat with course of antibiotics. Posterior oropharynx is not consistent with strep pharyngitis. Patient tells me this has been a recurrent problem for him over the last year. I did explain to him that if this course of antibiotics does not improve his lymphadenopathy he needs to follow up with a primary care doctor and I a referral for possible biopsy. Patient is aware and will do so. Reviewed worrisome signs and symptoms of when to return to the emergency department. Comfortable discharge home. MDM - Neck Pain/Injury Medical Records Attestation: I reviewed the patient's medical records. Lab Data Attestation: I reviewed the patient's lab results. Discharge Plan Discharge Clinical Impression: Lymphadenopathy Patient Disposition: Home, Self-Care Instructions: Lymphadenopathy (ED) Additional Instructions: Follow-up with your ear nose and throat as discussed Prescriptions: New amoxicillin 500 mg tablet 500 mg PO BID Qty: 20 RF: 0 ibuprofen 600 mg tablet 600 mg PO Q8H PRN (Reason: pain) Qty: 20 RF: 0 No Action ondansetron HCl [Zofran] 4 mg tablet 4 mg PO Q6H PRN (Reason: nausea and vomiting) Qty: 10 RF: 0 ibuprofen 600 mg tablet 600 mg PO TID PRN (Reason: pain) Qty: 14 RF: 0 tramadol 50 mg tablet 50 mg PO BID PRN (Reason: pain) Qty: 7 RF: 0 hydrocodone-acetaminophen 5-325 mg tablet 1 - 2 tab PO Q6H PRN (Reason: pain) Qty: 10 RF: 0 omeprazole 20 mg capsule,delayed release(DR/EC) 20 mg PO DAILY RF: 0 Referrals: Physician,None [Primary Care Provider] - 2 days Stand Alone Forms: Work/School Release Interventions: ED Discharge Assessment Last Done: 02/02/21 18:13 Discharge Date/Time: 02/02/21 18:14 Print Language: Kittitian
== END 2021-02-02 18:14 | disposition home or self-care (01) ==
PROVIDERS: Emergency Provider Emergency Medicine
DX: R59.1 Generalized enlarged lymph nodes (principal); M54.2 Cervicalgia; F12.90 Cannabis use, unspecified, uncomplicated; Z79.899 Other long term (current) drug therapy
CPT/HCPCS: 99283

== ENCOUNTER 2021-02-07 11:00 | Outpatient (RCR) | payer OTHER, SELFPAY | END 2021-02-07 13:54 | disposition home or self-care (01) | LOC: HO.PT 11:00 | PROVIDERS: Visit Provider Otolaryngology | DX: M54.2 Cervicalgia (principal) | CPT/HCPCS: 97110; 97112; 97140; 97161 ==

== ENCOUNTER 2021-03-28 19:56 | Emergency (ER) | payer OTHER, SELFPAY ==
--- NOTE | ~2021-03-28 | XR_ITS ---
EXAMINATION: XR CHEST CLINICAL INFORMATION: Throat swelling/closing sensation. COMPARISON: No similar priors. TECHNIQUE: PA view of the chest was obtained. FINDINGS: No significant abnormality is noted involving the heart, lungs, mediastinum, bony thorax or soft tissues. XR/XR chest 1V IMPRESSION: Unremarkable examination.
--- NOTE | ~2021-03-28 | XR_ITS ---
EXAMINATION: XR SOFT TISSUE NECK CLINICAL INDICATION: Throat swelling/closing sensation. COMPARISON: CT soft tissues of the neck dated from 03/05/2020. TECHNIQUE: 2 views of the soft tissue neck were obtained. FINDINGS: Soft tissue films of the neck demonstrate a normal larynx, pharynx and upper trachea. No soft tissue swelling or opaque foreign body is demonstrated. XR/XR soft tissue neck IMPRESSION: Unremarkable examination.
[2021-03-28 20:22] VITALS: BP 134/86; PULSE 68; RESP 18; TEMP 36.6; O2SAT 98; BMI 23.7
[2021-03-28 22:42] VITALS: BP 141/71; PULSE 64; RESP 18; O2SAT 98
[2021-03-28] MEDS: Magnesium Hydrox/Alum Hydrox 30 ML ORAL.SUSP PO (22:45)
[2021-03-28] MEDS: Lidocaine HCl Viscous 2 % 15 ML SOLUTION MUCOUS MEM (22:45)
[2021-03-28] MEDS: Famotidine 20 MG TABLET PO (22:45)
--- NOTE | 2021-03-28 23:28 | ED.GENADULT ---
HPI - General Adult General Chief complaint: General Medical Stated complaint: throat seems swollen when swallowing Time Seen by Provider: 03/28/21 21:16 Source: patient Mode of arrival: ambulatory History of Present Illness HPI narrative: 25-year-old male with no significant past medical history presenting to the ED complaining of throat discomfort/swelling with difficulty swallowing secondary to discomfort worsening over 1 year. Admits has ENT appointment scheduled for 04/10. Admits to testing negative for COVID-19 and strep pharyngitis multiple times recently when evaluated for similar symptoms. Denies sore throat, fever, chills, cough, SOB, throat closing sensation, trauma Onset (ago): year(s) Related Data Previous Rx's Medication Instructions Recorded aluminum-mag hydroxide-simethicone 5 ml PO 5XD PRN #30 ml 03/28/21 200 mg-200 mg-20 mg/5 mL oral susp (Maalox Advanced) famotidine 20 mg tablet (Pepcid) 20 mg PO DAILY #14 tab 03/28/21 lidocaine HCl 2 % mucosal solution 5 ml MUCOUS MEMBRANE BID PRN #100 03/28/21 (Lidocaine Viscous) ml Allergies Allergy/AdvReac Type Severity Reaction Status Date / Time No Known Allergies Allergy Unverified 03/28/21 22:29 Review of Systems Review of Systems: Constitutional: No Fever, No Chills, No Fatigue, No Malaise ENT/Mouth: No Ear Pain, No Nasal Congestion, No Hoarseness, No sore throat, No Rhinorrhea, + Swallowing Difficulty Eyes: No Eye Pain, No Swelling, No Redness, No Foreign Body, No Discharge Cardiovascular: No Chest Pain, No SOB Respiratory: No Cough, No Dyspnea Gastrointestinal: No Nausea, No Vomiting, No Abdominal pain Genitourinary: No Dysuria, No Flank Pain Musculoskeletal: No joint pain, No Myalgias, No Joint Swelling Skin: No Skin Lesions, No rash Neuro: No Weakness, No Headache Yes all other systems are reviewed and are negative PMFSH Past Medical History Attestation statement: The following information was validated with the patient. Social History Social History Patient Tobacco Use Status: Never used Tobacco Use of substances other than those prescribed or required for medical reasons: Yes Substance Use Type: Marijuana Substance Use Frequency: Daily Advance Directives: No Physical Exam Vital Signs: Vital Signs: Last Vital Signs Temp 98 F 03/28/21 20:22 Pulse 64 03/28/21 22:42 Resp 18 03/28/21 22:42 BP 141/71 H 03/28/21 22:42 Pulse Ox 98 03/28/21 22:42 BMI result Body Mass Index 23.7 Const: General: cooperative, healthy appearing and no acute distress Orientation/consciousness: patient oriented x3 Limitations: no limitations HENMT: Head: Yes normal to inspection Ears: hearing grossly normal bilaterally General nose exam: Normal external nose present Face and sinus: Yes normal facial exam Mouth: Normal oral and palatal mucosa present Throat: Yes posterior oropharynx normal, Yes tonsils normal, Yes uvula midline, No peritonsillar mass, No uvula laterally displaced and No uvular edema Eyes: General: appearance normal, both eyes and all related structures EOM: EOMs intact bilaterally Neck: Neck: Yes normal visual inspection, Yes full ROM, Yes no lymphadenopathy, Yes no meningeal signs, Yes trachea midline, Yes supple, No anterior neck swelling and No torticollis Resp: Effort & Inspection: normal respiratory effort and no stridor Auscultation: clear to auscultation bilaterally, no crackles, no rales and no wheezes Cardio: Rate: regular rate Heart sounds: S1 normal heart sound present and S2 normal heart sound present Skin: Rashes: no rashes Wounds: no wounds Neuro: General: patient oriented x3 and no meningeal signs Gait exam (Neuro): Normal gait present Extrem: General: Yes normal to inspection Course Course Course Narrative: XR chest 1V IMPRESSION: Unremarkable examination. ? XR soft tissue neck IMPRESSION: Unremarkable examination -patient tolerated p.o. Maalox and viscous lidocaine without difficulty. Reports symptomatic improvement after medications. >> results discussed with patient including worrisome signs and symptoms and strict return precautions and need follow-up with PCP/scheduled ENT follow-up on the . Patient verbalized understanding feel safe for discharge, this time Medical Decision Making MDM Narrative Medical decision making narrative: 25-year-old male with no significant past medical history presenting to the ED complaining of throat discomfort/swelling with difficulty swallowing secondary to discomfort worsening over 1 year. On exam vital signs stable, NAD/nontoxic, doc pain complaints and at this, no stridor, no respiratory distress, lungs CTA, no evidence of intraoral or external swelling. Will obtain CXR /neck soft tissue x-ray and p.o. challenge/give symptomatic tx and re-evaluate Medical Records Medical records reviewed: Yes I reviewed the patient's medical records. Lab Data Lab results reviewed: Yes I reviewed the patient's lab results. Discharge Plan Discharge Clinical Impression: Throat discomfort Patient Disposition: Home, Self-Care Instructions: Pharyngitis (ED) Additional Instructions: Your x-rays are unremarkable Maalox and Pepcid will help with acid reduction Viscous lidocaine will help numb the back her throat Is very important that you follow-up with the ENT specialist as scheduled, follow up with her doctor as needed If symptoms persist or worsen, you have difficulty breathing, or you are unable to eat or drink please return to the ED Prescriptions: New famotidine [Pepcid] 20 mg tablet 20 mg PO DAILY Qty: 14 RF: 0 alum-mag hydroxide-simeth [Maalox Advanced] 200-200-20 mg/5 mL suspension 5 ml PO 5XD PRN (Reason: dyspepsia) Qty: 30 RF: 0 lidocaine HCl [Lidocaine Viscous] 2 % solution 5 ml mucous membrane BID PRN (Reason: pain) Qty: 100 RF: 0 Referrals: Dequan Allred [Physician] - 5 days Interventions: ED Discharge Assessment Last Done: 03/28/21 23:44 Discharge Date/Time: 03/28/21 23:45
== END 2021-03-28 23:45 | disposition home or self-care (01) ==
PROVIDERS: Emergency Provider Emergency Medicine
DX: J02.9 Acute pharyngitis, unspecified (principal)
CPT/HCPCS: 70360; 71045; 99283; 99284

== ENCOUNTER 2021-04-23 16:49 | Emergency (ER) | payer OTHER, SELFPAY | END 2021-04-23 19:32 | disposition left against medical advice (07) | PROVIDERS: Emergency Provider Emergency Medicine | DX: R52 Pain, unspecified (principal); R11.10 Vomiting, unspecified ==

== ENCOUNTER 2021-04-25 08:06 | Emergency (ER) | payer OTHER, SELFPAY ==
--- NOTE | ~2021-04-25 | XR_ITS ---
EXAMINATION: XR CHEST CLINICAL INFORMATION: Cough and decreased lung sounds. COMPARISON: Chest radiograph dated from 03/28/2021. TECHNIQUE: PA view of the chest was obtained. FINDINGS: No significant abnormality is noted involving the heart, lungs, mediastinum, bony thorax or soft tissues. XR/XR chest 1V IMPRESSION: No acute cardiopulmonary findings.
[2021-04-25 08:29] VITALS: BP 136/89; PULSE 75; RESP 19; TEMP 36.6; O2SAT 97; BMI 22.4
--- NOTE | 2021-04-25 09:29 | ED.URI ---
HPI - URI/Sore Throat General Chief Complaint: Upper Respiratory Symptoms Stated Complaint: body aches exposed to covid Time Seen by Provider: 04/25/21 09:29 Source: patient Mode of arrival: ambulatory Limitations: no limitations History of Present Illness HPI Narrative: 25-year-old male who is not vaccinated for COVID and who tested positive for COVID with an at-home test 5 days ago, presents with body aches, constant nausea, chills, dry cough, diarrhea, and vomiting. Patient can tolerate drinking water and lisa jorge. Patient has a history of asthma, he has no inhaler, he has no primary care provider. MD elicited complaint: cough Pertinent past history: asthma Onset (ago): day(s) (5) Consistency: intermittent Severity: moderate Able to tolerate fluids by mouth: Yes Relieving factors: OTC cold medicine Associated symptoms: chills, myalgias, rhinorrhea, nasal congestion, sore throat, cough, nausea, vomiting and diarrhea Treatments prior to arrival: none Related Data Home Medications Medication Instructions Recorded Confirmed omeprazole 20 mg capsule,delayed 20 mg PO DAILY 09/05/20 release Previous Rx's Medication Instructions Recorded ondansetron HCl 4 mg tablet 4 mg PO Q6H PRN #10 tab 05/06/20 (Zofran) ibuprofen 600 mg tablet 600 mg PO TID PRN #14 tab 09/02/20 tramadol 50 mg tablet 50 mg PO BID PRN #7 tab 09/02/20 hydrocodone 5 mg-acetaminophen 325 1 - 2 tab PO Q6H PRN #10 tab 09/11/20 mg tablet amoxicillin 500 mg tablet 500 mg PO BID #20 tab 02/02/21 ibuprofen 600 mg tablet 600 mg PO Q8H PRN #20 tab 02/02/21 aluminum-mag hydroxide-simethicone 5 ml PO 5XD PRN #30 ml 03/28/21 200 mg-200 mg-20 mg/5 mL oral susp (Maalox Advanced) famotidine 20 mg tablet (Pepcid) 20 mg PO DAILY #14 tab 03/28/21 lidocaine HCl 2 % mucosal solution 5 ml MUCOUS MEMBRANE BID PRN #100 03/28/21 (Lidocaine Viscous) ml albuterol sulfate 90 mcg/actuation 2 puff INHALATION Q4-6H PRN #8.5 g 04/25/21 aerosol inhaler dexamethasone 6 mg tablet 6 mg PO DAILY 3 Days #3 tab 04/25/21 ondansetron HCl 4 mg tablet 4 mg PO Q8H 3 Days #9 tab 04/25/21 (Zofran) Allergies Allergy/AdvReac Type Severity Reaction Status Date / Time No Known Allergies Allergy Verified 03/29/21 07:11 Review of Systems Constitutional: Constitutional: Reports body ache(s), Reports chills, Reports fatigue, Denies fever(s), Denies headache(s), Reports malaise and Denies weakness Eyes: Eyes: Denies diplopia ENT: Denies vertigo, Denies dizziness, Denies otalgia, Denies headache(s), Denies mouth pain, Reports nasal congestion, Reports nasal discharge, Reports post nasal drip, Denies sinus pain, Denies sinus pressure, Denies sore throat and Denies throat swelling Cardiovascular: Cardiovascular: Denies chest pain, Denies syncope, Denies leg edema, Denies lightheadedness, Denies Loss of Consciousness, Denies palpitations and Denies dyspnea Respiratory: Respiratory: Denies chest congestion, Reports cough and Denies dyspnea Gastrointestinal: Gastrointestinal: Denies abdominal pain, Denies hematochezia, Denies constipation, Reports diarrhea, Reports nausea and Reports vomiting Musculoskeletal: Musculoskeletal: Reports myalgias Neurologic: Denies confusion, Denies vertigo, Denies dizziness, Denies syncope, Denies headache(s) and Denies weakness Psychiatric: Psychiatric: Denies anxiety, Denies confusion and Denies depression Endocrine: Endocrine: Reports fatigue and Denies palpitations Allergic/Immunologic: Allergic/Immunologic: Denies throat swelling PMFSH Past Medical History Medical History Asthma GERD (gastroesophageal reflux disease) Marijuana abuse, continuous Surgical History No history of previous surgery Social History Social History (System 03/29/21 @ 07:11 by Li Beard) Alcohol intake: never Patient Tobacco Use Status: Never used Tobacco Substance Use Type: Marijuana Advance Directives: No Advance Directives Information Provided: No Current occupational status: employed 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 Vital Signs: Vital Signs: Last Vital Signs Temp 98 F 04/25/21 08:29 Pulse 76 04/25/21 10:05 Resp 18 04/25/21 10:05 BP 136/89 04/25/21 08:29 Pulse Ox 97 04/25/21 08:29 BMI result Body Mass Index 22.4 Const: General: no acute distress, well developed, alert and awake; No confusion Nutritional Appearance: well nourished Orientation/consciousness: patient oriented x3 and No confusion Limitations: no limitations HENMT: Head: Yes normal to inspection, Yes normocephalic and Yes atraumatic Ears: hearing grossly normal bilaterally, external ears normal, TM's normal bilaterally and EAC's normal General nose exam: Normal external nose present Face and sinus: Yes normal facial exam and Yes sinuses nontender Mouth: Normal oral and palatal mucosa present and moist mucous membranes Throat: Yes tonsils normal, Yes uvula midline, Yes posterior oropharynx abnormal (Mild posterior erythema) and Yes postnasal drainage Eyes: Conjunctivae: conjunctivae normal Pupils: Equal, round and reactive pupils present EOM: EOMs intact bilaterally Neck: Neck: Yes full ROM, Yes no lymphadenopathy and Yes supple Resp: Effort & Inspection: normal respiratory effort and able to speak in complete sentences Auscultation: no crackles, no rales, no rhonchi, no wheezes and diminished lung sounds bilateral Cardio: Rate: regular rate Rhythm: regular rhythm Heart sounds: S1 normal heart sound present and S2 normal heart sound present GI: Inspection: Yes normal to inspection Palpation (GI): Soft to palpation, nontender, no guarding and not rigid Percussion: Yes normal to percussion Auscultation: normal bowel sounds Skin: General skin exam: no rashes or lesions noted Neuro: General: patient oriented x3 and No confusion Cranial nerves: Yes Equal, round and reactive pupils present Extrem: General: Yes normal to inspection and Yes full ROM Psych: Appearance: grossly normal Affect: normal affect Attitude: cooperative Thought process: Normal thought process present Course Course Course Narrative: A 5-year-old male with a past medical history of asthma tested positive for COVID 5 days ago presents for constant nausea, body aches, dry cough. Patient states he is able to tolerate p.o. fluids, and can drink water and lisa jorge. On exam patient has moist mucous membranes, is satting 97% on room air, respiration rate 19, he is afebrile at 98 F with no antipyretics since last night Will get COVID test here, chest x-ray, give albuterol, Motrin, dexamethasone, Zofran Reevaluation(s) Reevaluation #1: CXR: FINDINGS: No significant abnormality is noted involving the heart, lungs, mediastinum, bony thorax or soft tissues. XR/XR chest 1V IMPRESSION: No acute cardiopulmonary findings. Pt is Covid positive Reevaluation #2: Patient feeling better with Zofran and albuterol inhaler. On re-examine, patient is moving more air. Patient's lungs are still mildly diminished, will prescribe albuterol, short course of dexamethasone due to patient's asthma, Zofran. Counseled patient to take Tylenol push fluids. Return if worsening symptoms MDM - URI/Sore Throat Lab Data Labs: Lab Results 04/25/21 Range/Units 10:23 COVID-19 ([facility]) Positive A (Negative) COVID-19 Clin Com See Note Discharge Plan Discharge Clinical Impression: COVID-19 Patient Disposition: Home, Self-Care Instructions: COVID-19 (Coronavirus Disease 2019) (ED) Additional Instructions: Please use albuterol inhaler, 2 puffs every 4 hours while urine awake for the next 4-5 days. Please take Zofran, only take it every 8 hours. This will help with the nausea push fluids, drink broth, Jell-O, soups, take the dexamethasone for the next 3 days starting tomorrow, you are ready had her dose today this will also help you with your breathing. If you have worsening symptoms such as chest pain or shortness of breath, please return to be seen. Please quarantine and isolate for the next 10 days. Prescriptions: New albuterol sulfate 90 mcg/actuation HFA aerosol inhaler 2 puff inhalation Q4-6H PRN (Reason: shortness of breath or wheezing) Qty: 8.5 RF: 0 ondansetron HCl [Zofran] 4 mg tablet 4 mg PO Q8H 3 Days Qty: 9 RF: 0 dexamethasone 6 mg tablet 6 mg PO DAILY 3 Days Qty: 3 RF: 0 No Action ondansetron HCl [Zofran] 4 mg tablet 4 mg PO Q6H PRN (Reason: nausea and vomiting) Qty: 10 RF: 0 ibuprofen 600 mg tablet 600 mg PO TID PRN (Reason: pain) Qty: 14 RF: 0 tramadol 50 mg tablet 50 mg PO BID PRN (Reason: pain) Qty: 7 RF: 0 hydrocodone-acetaminophen 5-325 mg tablet 1 - 2 tab PO Q6H PRN (Reason: pain) Qty: 10 RF: 0 famotidine [Pepcid] 20 mg tablet 20 mg PO DAILY Qty: 14 RF: 0 alum-mag hydroxide-simeth [Maalox Advanced] 200-200-20 mg/5 mL suspension 5 ml PO 5XD PRN (Reason: dyspepsia) Qty: 30 RF: 0 lidocaine HCl [Lidocaine Viscous] 2 % solution 5 ml mucous membrane BID PRN (Reason: pain) Qty: 100 RF: 0 amoxicillin 500 mg tablet 500 mg PO BID Qty: 20 RF: 0 ibuprofen 600 mg tablet 600 mg PO Q8H PRN (Reason: pain) Qty: 20 RF: 0 omeprazole 20 mg capsule,delayed release(DR/EC) 20 mg PO DAILY RF: 0 Stand Alone Forms: Work/School Release
[2021-04-25] MEDS: Albuterol Sulfate 90 MCG 8 GM INHALER 2 PUFF INHALE (10:01)
[2021-04-25 10:05] VITALS: PULSE 76; RESP 18; O2SAT 97
[2021-04-25] MEDS: Ibuprofen 800 MG TABLET PO (10:20)
[2021-04-25] MEDS: dexAMETHasone 6 MG TABLET PO (10:21)
[2021-04-25] MEDS: Ondansetron ODT 4 MG TAB.RAPDIS TRANSLINGU (10:21)
[2021-04-25 10:44] LABS: COVID-19 Test Positive (Negative)
== END 2021-04-25 11:50 | disposition home or self-care (01) ==
PROVIDERS: Physician Assistant; Emergency Provider Emergency Medicine
DX: U07.1 COVID-19 (principal); M79.10 Myalgia, unspecified site; R68.83 Chills (without fever); R05.9 Cough, unspecified; Z79.899 Other long term (current) drug therapy
CPT/HCPCS: 36415; 71045; 87635; 94640; 99283; 99284; J8540

== ENCOUNTER 2021-05-01 18:16 | Emergency (ER) | payer OTHER, SELFPAY ==
[2021-05-01 18:29] VITALS: BP 117/86; BP 119/73; PULSE 86; PULSE 98; RESP 18; TEMP 36; O2SAT 95; O2SAT 98; BMI 19.8
--- NOTE | 2021-05-01 18:47 | PC.NURSE ---
Addendum entered by Patricia Bhardwaj, [facility] 05/01/21 19:04: Section 12A Original Note: pt arrives via ems after stating that he was driving recklessly in an attempt to kill himself. When pulled over by PD they called EMS but did not section him. Client voluntarily arrived. Pt was tearful on stretcher but cooperative and answering questions. Pt changed over with no issues. Pt given food and drink. Bob WILLIAMSON in to see patient and will section 35 him due to clear plan of intent to harm himself. Pt denies etoh or drug abuse in community. Neuro intact, vitals wnl.
--- NOTE | 2021-05-01 18:51 | ED_ITS ---
HPI - Psych General Chief Complaint: Psychiatric Symptoms Stated Complaint: crisis Source: patient Mode of arrival: ambulatory Limitations: no limitations History of Present Illness HPI Narrative: 25-year-old male presents to ED with suicide attempt. Patient was found by police driving recklessly. When police pulled him over patient states he is depressed and was trying to cross the car and kill himself. MD complaint: suicidal ideation and feels depressed Related Data Home Medications Medication Instructions Recorded Confirmed omeprazole 20 mg capsule,delayed 20 mg PO DAILY 09/05/20 release Previous Rx's Medication Instructions Recorded ondansetron HCl 4 mg tablet 4 mg PO Q6H PRN #10 tab 05/06/20 (Zofran) ibuprofen 600 mg tablet 600 mg PO TID PRN #14 tab 09/02/20 tramadol 50 mg tablet 50 mg PO BID PRN #7 tab 09/02/20 hydrocodone 5 mg-acetaminophen 325 1 - 2 tab PO Q6H PRN #10 tab 09/11/20 mg tablet amoxicillin 500 mg tablet 500 mg PO BID #20 tab 02/02/21 ibuprofen 600 mg tablet 600 mg PO Q8H PRN #20 tab 02/02/21 aluminum-mag hydroxide-simethicone 5 ml PO 5XD PRN #30 ml 03/28/21 200 mg-200 mg-20 mg/5 mL oral susp (Maalox Advanced) famotidine 20 mg tablet (Pepcid) 20 mg PO DAILY #14 tab 03/28/21 lidocaine HCl 2 % mucosal solution 5 ml MUCOUS MEMBRANE BID PRN #100 03/28/21 (Lidocaine Viscous) ml albuterol sulfate 90 mcg/actuation 2 puff INHALATION Q4-6H PRN #8.5 g 04/25/21 aerosol inhaler dexamethasone 6 mg tablet 6 mg PO DAILY 3 Days #3 tab 04/25/21 ondansetron HCl 4 mg tablet 4 mg PO Q8H 3 Days #9 tab 04/25/21 (Zofran) Allergies Allergy/AdvReac Type Severity Reaction Status Date / Time No Known Allergies Allergy Verified 05/01/21 18:34 Review of Systems Review of Systems: Depressed and suicidal Yes all other systems are reviewed and are negative PMFSH Past Medical History Medical History Asthma GERD (gastroesophageal reflux disease) Marijuana abuse, continuous Surgical History No history of previous surgery Social History Social History (System 03/29/21 @ 07:11 by Li Beard) Alcohol intake: never Patient Tobacco Use Status: Never used Tobacco Substance Use Type: Marijuana Advance Directives: No Advance Directives Information Provided: No Current occupational status: employed 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 Vital Signs: Vital Signs: Last Vital Signs Temp 98.1 F 05/02/21 00:20 Pulse 70 05/02/21 00:20 Resp 18 05/02/21 00:20 BP 125/65 05/02/21 00:20 Pulse Ox 99 05/02/21 00:20 BMI result Body Mass Index 19.8 Const: General: cooperative, healthy appearing, comfortable, no acute distress, well developed, alert, awake and Physically active Orientation/consciousness: patient oriented x3 HENMT: Head: Yes normal to inspection, Yes No palpable skull fracture present, Yes normocephalic, Yes atraumatic and No abrasion Eyes: General: appearance normal, both eyes and all related structures Neck: Neck: Yes normal visual inspection, Yes full ROM, Yes no lymphadenopathy, Yes no meningeal signs, Yes trachea midline, Yes supple, No anterior neck swelling and No tender Chest: Chest palpation & inspection: normal inspection of the chest and normal palpation of entire chest wall Resp: Effort & Inspection: normal respiratory effort and able to speak in complete sentences Auscultation: clear to auscultation bilaterally Cardio: Jugular venous distension: no JVD Heart sounds: S1 normal heart sound present and S2 normal heart sound present GI: Inspection: Yes normal to inspection and No abdominal wall ecchymosis Palpation (GI): Soft to palpation, not firm, nontender, no guarding and not rigid : General: No CVA tenderness and Yes no CVA tenderness Back/Spine/Pelvis: Back: no CVA tenderness, No CVA tenderness and No back tenderness Skin: General skin exam: no rashes or lesions noted and elasticity normal Neuro: General: patient oriented x3, no meningeal signs and CN's II-XI intact bilaterally Cranial nerves: Yes CN's II-XII intact bilaterally Extrem: General: Yes normal to inspection and Yes full ROM Psych: Other: Patient is crying states he needs help. Appearance: grossly normal, well kempt and not disheveled Thought content: Suicidality present and Depressive thoughts present Course Course Course Narrative: Patient labs ordered. Patient had COVID swab. Patient's Section 12. Crisis consult to be placed Reevaluation(s) Reevaluation #1: Patient labs are normal. Patient's COVID swab positive. Patient pending crisis consult. Time: 01:59 MDM - Psych Lab Data Result diagrams: 05/01/21 20:22 05/01/21 20:22 Labs: Lab Results 05/01/21 05/01/21 05/01/21 Range/Units 18:41 18:41 18:42 WBC (4.8-10.8) X10*3/uL RBC (4.60-5.80) X10*6/uL Hgb (14.0-18.0) g/dl Hct (42.0-52.0) % MCV (80.0-98.0) fL MCH (27.0-33.0) pg MCHC (31.0-36.0) g/dl RDW (11.0-16.0) % Plt Count (160-400) X10*3/uL MPV (9.4-12.4) fL Immature Gran % (Auto) (0.0-0.4) % Neut % (Auto) (45-73) % Lymph % (Auto) (20-40) % [place] % (Auto) (2-11) % Eos % (Auto) (0-4) % Baso % (Auto) (0-2) % Lymph # (Auto) (1.2-4.9) X10*3/uL [place] # (Auto) (0.1-1.2) X10*3/uL Eos # (Auto) (0.0-0.4) X10*3/uL Baso # (Auto) (0.0-0.2) X10*3/uL Abs Immat Gran (auto) (0.00-0.03) X10*3/uL Absolute Neuts (auto) (2.0-8.3) x10*3/uL Absolute Nucleated RBC (0.0-0.012) X10*3/uL Nucleated RBC % (auto) (0.0-0.2) /100WBC Sodium (135-145) mmol/L Potassium (3.3-5.1) mmol/L Chloride (96-108) mmol/L Carbon Dioxide (22-29) mmol/L Anion Gap (12-20) BUN (9-16) mg/dL Creatinine (0.5-1.4) mg/dL Estim Creat Clear Calc Estimated GFR Random Glucose (60-115) mg/dL Calcium (8.4-10.2) mg/dL Total Bilirubin (0.0-1.0) mg/dL AST (5-37) U/L ALT (0-40) U/L Alkaline Phosphatase (39-117) U/L Total Protein (6.5-8.0) g/dL Albumin (3.5-5.0) g/dL Urine Color DK YELLOW Urine Appearance CLEAR Urine pH 7.0 (5.0-8.0) Ur Specific [place] 1.020 (1.005-1.025) Urine Protein 1+ H (NEG-TRACE) MG/DL Urine Glucose (UA) NEG (NEG) MG/DL Urine Ketones >=80 (NEG) MG/DL Urine Blood NEG (NEG) Urine Nitrite NEG (NEG) Ur Leukocyte Esterase NEG (NEG) Urine RBC 0-2 (0) /HPF Urine WBC 0-2 (0-4) /HPF Ur Squamous Epith Cells TRACE /LPF Urine Bacteria NONE /LPF Urine Mucus 4+ /LPF Urine Opiates Screen Not Detected (Not Detect) Urine Fentanyl Screen Not Detected (Not Detect) Ur Barbiturates Screen Not Detected (Not Detect) Ur Phencyclidine Scrn Not Detected (Not Detect) Ur Amphetamines Screen Not Detected (Not Detect) U Benzodiazepines Scrn Not Detected (Not Detect) Urine Cocaine Screen Not Detected (Not Detect) U Marijuana (THC) Screen POSITIVE H (Not Detect) Ethyl Alcohol mg/dL COVID-19 (KARIE) Positive A (Negative) COVID-19 Clin Com See Note 05/01/21 05/01/21 05/01/21 Range/Units 20: 20:: WBC 14.0 H (4.8-10.8) X10*3/uL RBC 5.26 (4.60-5.80) X10*6/uL Hgb 15.3 (14.0-18.0) g/dl Hct 44.2 (42.0-52.0) % MCV 84.0 (80.0-98.0) fL MCH 29.1 (27.0-33.0) pg MCHC 34.6 (31.0-36.0) g/dl RDW 12.2 (11.0-16.0) % Plt Count 202 (160-400) X10*3/uL MPV 11.0 (9.4-12.4) fL Immature Gran % (Auto) 0.3 (0.0-0.4) % Neut % (Auto) 79.0 H (45-73) % Lymph % (Auto) 13.8 L (20-40) % [place] % (Auto) 6.4 (2-11) % Eos % (Auto) 0.4 (0-4) % Baso % (Auto) 0.1 (0-2) % Lymph # (Auto) 1.9 (1.2-4.9) X10*3/uL [place] # (Auto) 0.9 (0.1-1.2) X10*3/uL Eos # (Auto) 0.1 (0.0-0.4) X10*3/uL Baso # (Auto) 0.0 (0.0-0.2) X10*3/uL Abs Immat Gran (auto) 0.04 H (0.00-0.03) X10*3/uL Absolute Neuts (auto) 11.0 H (2.0-8.3) x10*3/uL Absolute Nucleated RBC 0.000 (0.0-0.012) X10*3/uL Nucleated RBC % (auto) 0.0 (0.0-0.2) /100WBC Sodium 142 (135-145) mmol/L Potassium 3.9 (3.3-5.1) mmol/L Chloride 105 (96-108) mmol/L Carbon Dioxide 29 (22-29) mmol/L Anion Gap 12 (12-20) BUN 10 (9-16) mg/dL Creatinine 0.87 (0.5-1.4) mg/dL Estim Creat Clear Calc 127.0 Estimated GFR > 60 Random Glucose 95 (60-115) mg/dL Calcium 10.1 (8.4-10.2) mg/dL Total Bilirubin 0.7 (0.0-1.0) mg/dL AST 15 (5-37) U/L ALT 14 (0-40) U/L Alkaline Phosphatase 85 (39-117) U/L Total Protein 7.6 (6.5-8.0) g/dL Albumin 4.7 (3.5-5.0) g/dL Urine Color Urine Appearance Urine pH (5.0-8.0) Ur Specific [place] (1.005-1.025) Urine Protein (NEG-TRACE) MG/DL Urine Glucose (UA) (NEG) MG/DL Urine Ketones (NEG) MG/DL Urine Blood (NEG) Urine Nitrite (NEG) Ur Leukocyte Esterase (NEG) Urine RBC (0) /HPF Urine WBC (0-4) /HPF Ur Squamous Epith Cells /LPF Urine Bacteria /LPF Urine Mucus /LPF Urine Opiates Screen (Not Detect) Urine Fentanyl Screen (Not Detect) Ur Barbiturates Screen (Not Detect) Ur Phencyclidine Scrn (Not Detect) Ur Amphetamines Screen (Not Detect) U Benzodiazepines Scrn (Not Detect) Urine Cocaine Screen (Not Detect) U Marijuana (THC) Screen (Not Detect) Ethyl Alcohol < 10 mg/dL COVID-19 (KARIE) (Negative) COVID-19 Clin Com Discharge Plan Discharge Clinical Impression: Depression Patient Disposition: Still a Patient Prescriptions: No Action ondansetron HCl [Zofran] 4 mg tablet 4 mg PO Q6H PRN (Reason: nausea and vomiting) Qty: 10 RF: 0 ibuprofen 600 mg tablet 600 mg PO TID PRN (Reason: pain) Qty: 14 RF: 0 tramadol 50 mg tablet 50 mg PO BID PRN (Reason: pain) Qty: 7 RF: 0 hydrocodone-acetaminophen 5-325 mg tablet 1 - 2 tab PO Q6H PRN (Reason: pain) Qty: 10 RF: 0 famotidine [Pepcid] 20 mg tablet 20 mg PO DAILY Qty: 14 RF: 0 alum-mag hydroxide-simeth [Maalox Advanced] 200-200-20 mg/5 mL suspension 5 ml PO 5XD PRN (Reason: dyspepsia) Qty: 30 RF: 0 lidocaine HCl [Lidocaine Viscous] 2 % solution 5 ml mucous membrane BID PRN (Reason: pain) Qty: 100 RF: 0 amoxicillin 500 mg tablet 500 mg PO BID Qty: 20 RF: 0 ibuprofen 600 mg tablet 600 mg PO Q8H PRN (Reason: pain) Qty: 20 RF: 0 albuterol sulfate 90 mcg/actuation HFA aerosol inhaler 2 puff inhalation Q4-6H PRN (Reason: shortness of breath or wheezing) Qty: 8.5 RF: 0 ondansetron HCl [Zofran] 4 mg tablet 4 mg PO Q8H 3 Days Qty: 9 RF: 0 dexamethasone 6 mg tablet 6 mg PO DAILY 3 Days Qty: 3 RF: 0 omeprazole 20 mg capsule,delayed release(DR/EC) 20 mg PO DAILY RF: 0
[2021-05-01 19:01] LABS: IDNOW Serial# 9DD0AD1C
[2021-05-01 19:02] LABS: COVID-19 Test Positive (Negative)
[2021-05-01 19:07] LABS: Amphetamine Screen Urine Not Detected (Not Detect); Barbiturates, Urine Not Detected (Not Detect); Benzodiazepines Screen Urine Not Detected (Not Detect); Cannabinoid Screen Urine POSITIVE (Not Detect); Cocaine Screen Urine Not Detected (Not Detect); Fentanyl, urine Not Detected (Not Detect); Opiate Screen Urine Not Detected (Not Detect); Phencyclidine Screen Urine Not Detected (Not Detect)
--- NOTE | 2021-05-01 19:13 | MHC.CARE ---
CARE Team signed Section 12A on request of TERI Blancas after reviewing case.
[2021-05-01 20:27] LABS: MANUAL DIFF FLAG NO
[2021-05-01 20:29] LABS: Basophils Percent Auto 0.1 % (0-2); Eosinophils Absolute Auto 0.1 X10*3/uL (0.0-0.4); Eosinophils Percent Auto 0.4 % (0-4); Hematocrit 44.2 % (42.0-52.0); Hemoglobin 15.3 g/dl (14.0-18.0); Imm Gran Abs Auto 0.04 X10*3/uL (0.00-0.03); Imm Gran Pct Auto 0.3 % (0.0-0.4); Lymphocytes Absolute Auto 1.9 X10*3/uL (1.2-4.9); Lymphocytes Percent Auto 13.8 % (20-40); Mean Corpuscular HGB Conc 34.6 g/dl (31.0-36.0); Mean Corpuscular Hemoglobin 29.1 pg (27.0-33.0); Monocytes Absolute Auto 0.9 X10*3/uL (0.1-1.2); Monocytes Percent Auto 6.4 % (2-11); Platelet Count 202 X10*3/uL (160-400); Red Blood Count 5.26 X10*6/uL (4.60-5.80); Red Cell Distribution Width 12.2 % (11.0-16.0)
[2021-05-01 20:40] LABS: Ethanol < 10 mg/dL
[2021-05-01 20:42] LABS: Alanine Aminotransferase 14 U/L (0-40); Albumin Level 4.7 g/dL (3.5-5.0); Alkaline Phosphatase 85 U/L (39-117); Anion Gap 12 (12-20); Aspartate Amino Transferase 15 U/L (5-37); Bilirubin Total 0.7 mg/dL (0.0-1.0); Blood Urea Nitrogen 10 mg/dL (9-16); Calcium 10.1 mg/dL (8.4-10.2); Carbon Dioxide 29 mmol/L (22-29); Chloride 105 mmol/L (96-108); Estimated Glomerular Filt Rate > 60; Glucose Random 95 mg/dL (60-115); Potassium 3.9 mmol/L (3.3-5.1); Sodium 142 mmol/L (135-145); Total Protein 7.6 g/dL (6.5-8.0)
[2021-05-01 23:19] LABS: Appearance Urine CLEAR; Color Urine DK YELLOW; Glucose Urine UA NEG (NEG); Leukocyte Esterase Urine NEG (NEG); Nitrite Urine NEG (NEG); UACC Culture Trigger NO; Urine Blood NEG (NEG); Urine Ketones >=80 MG/DL (NEG); Urine Protein 1+ MG/DL (NEG-TRACE)
[2021-05-01 23:20] LABS: RBC Urine 0-2 /HPF (0); Squamous Epithelial Cell Urine TRACE /LPF; WBC Urine 0-2 /HPF (0-4)
[2021-05-01 23:21] LABS: Mucus Urine 4+ /LPF
[2021-05-02 00:20] VITALS: BP 125/65; PULSE 70; RESP 18; TEMP 36.7; O2SAT 99
--- NOTE | 2021-05-02 02:12 | PC.NURSE ---
PT in bed this shift resting. BHN here to consult with PT. PT VS. PT denies SI/HI at this time.
--- NOTE | 2021-05-02 11:57 | PHA.MEDREC ---
Pharmacy Consult ? Medication Reconciliation Pharmacy has completed the medication reconciliation. There are no remarkable issues for provider's attention. Analilia Mata, DavidD
[2021-05-03 00:28] VITALS: BP 136/71; PULSE 88; RESP 18; TEMP 37; O2SAT 100
--- NOTE | 2021-05-03 06:11 | PC.NURSE ---
Patient slept through the night, no distress observed/reported, behavior appropriate, medication compliant, patient covid +, quarantine well, follows direction well, patient was screened by [facility], section 12 inpatient bed search, no update on bed search, VSS, will continue to monitor.
[2021-05-03 10:24] VITALS: BP 140/88; PULSE 72; RESP 16; TEMP 36.9; O2SAT 99
[2021-05-03 11:26] LABS: COVID-19 Test Positive (Negative); IDNOW Serial# 9DD0AD1C
--- NOTE | 2021-05-03 14:39 | PC.NURSE ---
Pt's mom is to be emergency contact Christine Edwards [phone]
--- NOTE | 2021-05-03 15:36 | PC.NURSE ---
Report received. Pt resting comfortably in bed, no signs of distress. Continues to be a section 12 bed search. Waiting to be seen by N for a MSU.
[2021-05-03 17:07] VITALS: BP 139/73; PULSE 95; RESP 18; TEMP 37.1; O2SAT 99
--- NOTE | 2021-05-03 18:54 | MHC.CARE ---
CARE team met with pt and psych provider Amanda Garcia. Pt states that he was experiencing a period where he was in a funk, however states he is feeling much better now. Pt shares that he resides alone in an apartment. He recently broke up with his girlfriend which was causing him a great load of stress. He was self medicating with marijuana to suppress his depressive sx's. Pt reports psychosocial stressors and reports ever since from his gf he has been feeling better. Pt states he was driving recklessly and was pulled over, when he was pulled over he told the officer that he was suicidal and depressed. He reports that he also told the officer he was having command auditory hallucinations and instead of being arrested he was brought here. Pt denies current SI. He presents with good insight and motivation. Pt states that he has plans to return home and look for a job. Pt will be discharged home.
--- NOTE | 2021-05-03 22:24 | PM.PSYCN ---
History of Present Illness Date of Service: 05/03/2021 Chief Complaint: crisis Reason for Consult: Disposition Requesting physician: Eva Tao Discussed with referring provider: Yes Sources of Information: patient interviewed, chart reviewed and crisis/core team assessment reviewed HPI Narrative: Erickson is a 25 y.o. Male who presented to [facility] on 05/01/21 after being found by police driving recklessly; when police pulled him over pt stated he felt depressed and was driving recklessly as a suicide attempt. On arrival to the ED, pt was found to be positive for COVID-19. Precipitating factors include that pt recently lost his job of two years, financial stress, and arguing with his daughter?s mother. Utox positive for cannabis, no alcohol or illicit substance use.? I evaluated the pt this evening and upon interview he reports he is in the hospital because ?I was going through a situation at home.? Says he has been contemplating leaving his daughter?s mother for years, felt pressured to be with her after she became , felt he ?had to do things right.? He attributes his sx of depression to being unhappy in this relationship, as he says he used to go to gym and socialize, but felt unfulfilled and started to self medicate with cannabis, had not been eating, felt his mindset was ?negative? and his live was ?miserable.? Says he ended the relationship two days ago and since then he feels more hopeful, would like to get a new job, ?push myself.? States he told the police that he was experiencing SI and driving recklessly as a self harm attempt in order to evade a ticket. Currently denies SI/SIB/HI and says he feels safe. Sleep is ?good.? Current mood is ?good.? Says he feels ?a big relief? coming to the hospital and feels he has obtained the help he needed to clear his mind.? Past Psychiatric History: -Brief hx of outpt therapy at [facility] [id number]. Medical Evaluation Reviewed: Yes [facility] Medical History Asthma GERD (gastroesophageal reflux disease) Marijuana abuse, continuous Surgical History No history of previous surgery Social History: -Pt lives in his own apartment by himself x 3 yrs. He has a daughter (age 3), recently ended relationship with daughter?s mother. Supports: bio mom. 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 Substance History: -Cannabis: onset in 2017;daily use, last used 4 days ago. Diagnostics Vital Signs (24Hr): Vital Signs - 24 hr 05/03/21 00:28 05/03/21 10:24 05/03/21 17:07 Temperature 98.6 F 98.5 F 98.7 F Pulse Rate 88 72 95 Respiratory Rate 18 16 18 Blood Pressure 136/71 140/88 H 139/73 Pulse Oximetry 100 99 99 BMI result Body Mass Index 19.8 Labs Results: 05/01/21 20:22 05/01/21 20:22 Labs: Laboratory Results - last 48 hr 05/01/21 05/03/21 18:41 11:11 Urine Color DK YELLOW Urine Appearance CLEAR Urine pH 7.0 Ur Specific [place] 1.020 Urine Protein 1+ H Urine Glucose (UA) NEG Urine Ketones >=80 Urine Blood NEG Urine Nitrite NEG Ur Leukocyte Esterase NEG Urine RBC 0-2 Urine WBC 0-2 Ur Squamous Epith Cells TRACE Urine Bacteria NONE Urine Mucus 4+ COVID-19 (KARIE) Positive A COVID-19 Clin Com See Note Mental Status Exam Mental Status Exam Narrative: A&O. Sitting up in bed, in hospital attire, thin-normo body habitus, hygiene adequate. Good eye contact, attentive. No Tics or Tremors. No abnormal involuntary movements. Calm, cooperative, engaged. Non-pressured speech, spontaneous with regular rate and rhythm, normal volume and prosody. No prolonged speech latency or dysarthria. Mood is ?good,? affect is euthymic. Denies SI/SIB/HI upon inquiry. Denies A/VH or delusional thought content. Thoughts are coherent, organized. No known cognitive or memory impairment. Insight/ Judgment fair and adequate. Medications Allergies Allergies Allergy/AdvReac Type Severity Reaction Status Date / Time No Known Allergies Allergy Verified 05/01/21 18:34 Assessment & Plan Assessment & Plan (1) MDD (major depressive disorder), recurrent episode, mild: Status: Acute Code(s): F33.0 - Major depressive disorder, recurrent, mild Assessment and Plan: Erickson is a 25 y.o. Male who presented to [facility] on 05/01/21 after being found by police driving recklessly; when police pulled him over pt stated he felt depressed and was driving recklessly as a suicide attempt. Pt has numerous psychosocial stressors and reports he only told police he was suicidal to evade a ticket. Pt is stable, denies SI/SIB/HI upon inquiry, says he feels safe and is advocating for discharge. He declined referral for outpt psych services. No hx of psychotropic medications. 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 He has a daughter and would like to get a job to help support her. No concerns for imminent safety. I spent minutes with the patient and/or on the patient floor today, greater than?50% of which was spent counseling/coordinating care. Patient educated on: therapeutic strategies
== END 2021-05-03 18:53 | disposition home or self-care (01) ==
PROVIDERS: Nurse Practitioner Family; Physician Assistant; Emergency Provider Emergency Medicine Emergency Medical Services; PCP Family Medicine
DX: F32.A Depression, unspecified (principal); U07.1 COVID-19; F12.10 Cannabis abuse, uncomplicated; Z20.822 Contact with and (suspected) exposure to COVID-19
CPT/HCPCS: 80053; 80307; 81001; 81003; 82077; 85025; 87635; 99285

== ENCOUNTER 2021-07-05 22:24 | Emergency (ER) | payer OTHER, SELFPAY ==
--- NOTE | ~2021-07-05 | XR_ITS ---
EXAMINATION: XR HAND, RIGHT CLINICAL INFORMATION: Hand pain. COMPARISON: None TECHNIQUE: PA, lateral, and oblique views of the right hand. XR/XR hand RT min 3V FINDINGS/IMPRESSION: Soft tissue swelling of the second digit. No acute fractures or malalignment. No unexpected foreign bodies.
[2021-07-05 22:32] VITALS: BP 147/72; PULSE 110; RESP 20; TEMP 37.6; O2SAT 98; BMI 22.4
--- NOTE | 2021-07-05 23:17 | ED_ITS ---
HPI - Extremity Problem General Chief complaint: Extremity Injury, Upper <TERI Mcnair Last Filed: 07/06/21 00:37> Stated complaint: lac on hand <TERI Mcnair - Last Filed: 07/06/21 00:37> Time Seen by Provider: 07/05/21 23:17 <TERI Mcnair Last Filed: 07/06/21 00:37> Source: patient <TERI Mcnair Last Filed: 07/06/21 00:37> Mode of arrival: ambulatory <TERI Mcnair Last Filed: 07/06/21 00:37> Limitations: no limitations <TERI Mcnair Last Filed: 07/06/21 00:37> History of Present Illness HPI Narrative: This is a 26-year-old male no significant medical history presenting to the emergency department with complaints of pain to right 3rd and 2nd fingers with a laceration to the 2nd finger. Patient tells me he was mad and he punched a wall, he cut his 2nd finger against the door frame which was metal. He is not up to date on a tetanus shot. He reports pain with movement of 2nd 3rd digit. Denies numbness or tingling. <TERI Mcnair - Last Filed: 07/06/21 00:37> MD Complaint: joint pain <TERI Mcnair Last Filed: 07/06/21 00:37> Onset (ago): hour(s) (3) <TERI Mcnair Last Filed: 07/06/21 00:37> Pain Consistency: constant <TERI Mcnair Last Filed: 07/06/21 00:37> Location: right <TERI Mcnair Last Filed: 07/06/21 00:37> Quality: constant <TERI Mcnair Last Filed: 07/06/21 00:37> Radiation: none <TERI Mcnair Last Filed: 07/06/21 00:37> Relieving factors: nothing <TERI Mcnair Last Filed: 07/06/21 00:37> Exacerbating factors: range of motion <TERI Mcnair - Last Filed: 07/06/21 00:37> Associated symptoms: denies other symptoms <TERI Mcnair - Last Filed: 07/06/21 00:37> Related Data Home medications: Home Medications Medication Instructions Recorded Confirmed ibuprofen 200 mg tablet 400 mg PO Q6H PRN 05/02/21 05/02/21 Previous Rx's Medication Instructions Recorded albuterol sulfate 90 mcg/actuation 2 puff INHALATION Q4-6H PRN #8.5 g 04/25/21 aerosol inhaler doxycycline hyclate 100 mg capsule 100 mg PO BID 10 Days #20 cap 07/05/21 <TERI Mcnair - Last Filed: 07/06/21 00:37> Allergies/Adverse reactions: Allergies Allergy/AdvReac Type Severity Reaction Status Date / Time No Known Allergies Allergy Verified 07/05/21 22:34 <TERI Mcnair - Last Filed: 07/06/21 00:37> Review of Systems Review of Systems: Constitutional : No Fever, No Chills, Cardiovascular : No Chest Pain, No SOB Respiratory : No Dyspnea Gastrointestinal : No abdominal pain Musculoskeletal : No Joint Swelling Skin : No rash, positive skin laceration Neuro : No Weakness, No Numbness Psych : No SI/HI <TERI Mcnair - Last Filed: 07/06/21 00:37> Yes all other systems are reviewed and are negative <TERI Mcnair - Last Filed: 07/06/21 00:37> FOR[facility]LY [facility], LATER [facility] Past Medical History Attestation statement: The following information was validated with the patient. <TERI Mcnair - Last Filed: 07/06/21 00:37> Source: old records reviewed and nursing notes reviewed <TERI Mcnair - Last Filed: 07/06/21 00:37> Medical History: Medical History Asthma GERD (gastroesophageal reflux disease) Marijuana abuse, continuous <TERI Mcnair Last Filed: 07/06/21 00:37> Surgical History: Surgical History No history of previous surgery <TERI Mcnair - Last Filed: 07/06/21 00:37> Social History Social History: Social History Alcohol intake: never Patient Tobacco Use Status: Never used Tobacco Substance Use Type: Marijuana Advance Directives: No Advance Directives Information Provided: Yes Current occupational status: employed 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 Oriented X3.? No acute distress.? Head: Normocephalic, atraumatic, no step-offs or deformities Eyes: Pupils equal, round and reactive to light.? ENT: Pharynx normal.? Neck: Normal inspection.? Neck supple.? CVS: Normal heart rate and rhythm.? Pulses normal.? Respiratory: No respiratory distress.? Breath sounds normal.? Abdomen: Soft and nontender.? Skin: Skin warm and dry.? Normal skin color.? Normal skin turgor.?+ 2 cm superficial laceration to the dorsal aspect of 2nd digit over the MTP joint Extremities: No lower extremity edema.? No calf ttp. 5/5 strength to bilateral upper and lower extremities Back: No midline tenderness, no C-spine tenderness, full range of motion, no CVA tenderness bilaterally Neuro: Oriented X 3.? No motor deficit.? No sensory deficit. CN 2-12 intact <TERI Mcnair - Last Filed: 07/06/21 00:37> Course Reevaluation(s) Reevaluation #1: Dermabond is applied. Patient will be discharged home with antibiotics. He tells me he is up-to-date on a tetanus shot and he had it when he had surgery on his hand a few years ago. He tells me he thinks this is less than 5 years ago when he does not want a tetanus shot at this time. At this time patient will be discharged home. <TERI Mcnair - Last Filed: 07/06/21 00:37> Time: 00:22 <TERI Mcnair - Last Filed: 07/06/21 00:37> Reevaluation #2: X-ray of right hand with soft tissue swelling up to the 2nd digit no acute fractures or malalignment. At this time laceration was closed with Dermabond. Patient will be discharged home. <TERI Mcnair - Last Filed: 07/06/21 00:37> Time: 00:37 <TERI Mcnair Last Filed: 07/06/21 00:37> MDM - Extremity (Nontraumatic) MDM Narrative Medical decision making narrative: 2320 26 yo m presents with pain to his right 2nd and 3rd digit status post punching a wall. He also has a laceration to the 2nd digit cut it on a door frame. Not up-to-date on tetanus shot. Denies numbness tingling. Physical examination significant for 2 cm laceration to the dorsal aspect of 2nd digit on right hand. No signs of foreign bodies. The laceration is superficial. There is no need for sutures at this time I will use Dermabond to closed the area. Plan at this time is x-rays and Dermabond. <TERI Mcnair - Last Filed: 07/06/21 00:37> Medical Records Attestation: I reviewed the patient's medical records. <TERI Mcnair Last Filed: 07/06/21 00:37> Lab Data Attestation: I reviewed the patient's lab results. <TERI Mcnair Last Filed: 07/06/21 00:37> Critical Care Time Critical Care Time Critical Care Time: No <TERI Mcnair Last Filed: 07/06/21 00:37> Discharge Plan Discharge Clinical Impression: Laceration of finger of right hand, Pain in finger of right hand <TERI Mcnair Last Filed: 07/06/21 00:37> Patient Disposition: Home, Self-Care <TERI Mcnair Last Filed: 07/06/21 00:37> Instructions: Laceration (ED), Laceration (DC), Finger Laceration (ED), Laceration Without Closure (ED) <TERI Mcnair Last Filed: 07/06/21 00:37> Additional Instructions: Take your medications as prescribed. If you were prescribed antibiotics today, it is important that you take your medication to their entirety, do not skip any doses, do not finish them early. Follow-up with your primary care provider this week. Return to the emergency department with new or worsening symptoms. Such as fevers, chills, chest pain, shortness of breath, nausea, vomiting, dizziness, headache, vision changes, lethargy In case of emergency call 911 XR/XR hand RT min 3V FINDINGS/IMPRESSION: Soft tissue swelling of the second digit. No acute fractures or malalignment. No unexpected foreign bodies.? <TERI Mcnair Last Filed: 07/06/21 00:37> Prescriptions: New doxycycline hyclate 100 mg capsule 100 mg PO BID 10 Days Qty: 20 0RF No Action ibuprofen 200 mg Tablet 400 mg PO Q6H PRN (Reason: Pain) 0RF albuterol sulfate 90 mcg/actuation HFA aerosol inhaler 2 puff inhalation Q4-6H PRN (Reason: shortness of breath or wheezing) Qty: 8.5 0RF <TERI Mcnair Last Filed: 07/06/21 00:37> Referrals: Sunday Hinds MD [Primary Care Provider] - 2 days <TERI Mcnair Last Filed: 07/06/21 00:37> Stand Alone Forms: Work/School Release <TERI Mcnair Last Filed: 07/06/21 00:37>
== END 2021-07-06 01:08 | disposition home or self-care (01) ==
PROVIDERS: Emergency Provider Emergency Medicine; PCP Family Medicine
DX: S61.210A Laceration without foreign body of right index finger without damage to nail, initial encounter (principal); W22.8XXA Striking against or struck by other objects, initial encounter; Y93.9 Activity, unspecified; Y92.9 Unspecified place or not applicable; Y99.9 Unspecified external cause status
CPT/HCPCS: 12001; 73130; 99283

== ENCOUNTER 2021-09-10 07:36 | Emergency (ER) | payer OTHER, SELFPAY ==
[2021-09-10 08:07] VITALS: BP 121/59; PULSE 60; RESP 14; TEMP 36.6; O2SAT 98
--- NOTE | 2021-09-10 08:17 | ED_ITS ---
HPI - General Adult General Chief complaint: Abdominal Pain Stated complaint: lower r side abd pain Time Seen by Provider: 09/10/21 08:07 Source: patient Mode of arrival: ambulatory History of Present Illness HPI narrative: this is a 26 years old male presented to the emergency department concerned that he may have an STD. He denies to me that he has abdominal pain, he denies any nausea vomiting diarrhea. He states that he has been with new girl friend and he is worried about STD. Denies any fevers she is vomiting.He minimal pain in the tip of penis. Onset (ago): day(s) (1) Location: genitals Radiation: non-radiation Pain Consistency: constant Relieving factors: none Exacerbating factors: none Associated symptoms: denies other symptoms Related Data Home Medications Medication Instructions Recorded Confirmed ibuprofen 200 mg tablet 400 mg PO Q6H PRN 05/02/21 05/02/21 Previous Rx's Medication Instructions Recorded albuterol sulfate 90 mcg/actuation 2 puff INHALATION Q4-6H PRN #8.5 g 04/25/21 aerosol inhaler doxycycline hyclate 100 mg capsule 100 mg PO BID 10 Days #20 cap 07/05/21 Allergies Allergy/AdvReac Type Severity Reaction Status Date / Time No Known Allergies Allergy Verified 07/05/21 22:34 Review of Systems Constitutional: Constitutional: Reports no additional constitutional complaints Eyes: Eyes: Reports no additional eye complaints Respiratory: Respiratory: Reports no additional respiratory complaints Integumentary/Breasts: Skin/Breast: Reports system reviewed and no additional complaints, except as docu PMFSH Past Medical History Medical History Asthma GERD (gastroesophageal reflux disease) Marijuana abuse, continuous Surgical History No history of previous surgery Social History Social History Alcohol intake: never Patient Tobacco Use Status: Never used Tobacco Substance Use Type: Marijuana Advance Directives: No Advance Directives Information Provided: No Current occupational status: employed 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 ED Vital Signs: Vital Signs - 24 hr 09/10/21 08:07 Temperature 97.9 F Pulse Rate 60 Respiratory Rate 14 Blood Pressure 121/59 L Pulse Oximetry 98 Const General: cooperative and healthy appearing [facility] Head: Yes normal to inspection Ears: hearing grossly normal bilaterally General nose exam: Normal external nose present Face and sinus: Yes normal facial exam Mouth: Normal oral and palatal mucosa present Neck Neck: Yes normal visual inspection Chest Chest palpation & inspection: normal inspection of the chest Resp Effort & Inspection: normal respiratory effort Cardio Jugular venous distension: no JVD Rate: regular rate Rhythm: regular rhythm GI Inspection: Yes normal to inspection Palpation (GI): Soft to palpation, not firm, nontender and no guarding Auscultation: normal bowel sounds Other: testes within normal limit penis is within normal limit no lesions seen Male General Exam: Yes normal external exam Penis: normal penis Meatus: meatus normal Scrotum: scrotum normal Testes: Testes normal Skin General skin exam: no rashes or lesions noted Medical Decision Making MDM Narrative Medical decision making narrative: we will send urine for chlamydia GC, I do not think any to do any blood work has no abdominal pain no fever Discharge Plan Discharge Clinical Impression: Penis pain Patient Disposition: Home, Self-Care Additional Instructions: follow-up with your primary care physician return if you worse any concern Prescriptions: No Action ibuprofen 200 mg Tablet 400 mg PO Q6H PRN (Reason: Pain) 0RF doxycycline hyclate 100 mg capsule 100 mg PO BID 10 Days Qty: 20 0RF albuterol sulfate 90 mcg/actuation HFA aerosol inhaler 2 puff inhalation Q4-6H PRN (Reason: shortness of breath or wheezing) Qty: 8.5 0RF Referrals: Physician,None [Primary Care Provider] -
[2021-09-10 08:26] VITALS: BP 121/59; PULSE 53; RESP 18; TEMP 36.1; O2SAT 98; BMI 24.4
[2021-09-10 14:15] LABS: CT PCR NOT DETECTED (Not Detect.); NG PCR NOT DETECTED (Not Detect.)
== END 2021-09-10 08:42 | disposition home or self-care (01) ==
PROVIDERS: Emergency Provider Emergency Medicine
DX: R10.30 Lower abdominal pain, unspecified (principal); N48.89 Other specified disorders of penis; Z79.899 Other long term (current) drug therapy
CPT/HCPCS: 87491; 87591; 99283

== ENCOUNTER 2023-02-12 02:26 | Emergency (ER) | payer OTHER, SELFPAY ==
[2023-02-12 02:30] VITALS: BP 125/69; PULSE 78; RESP 15; TEMP 36.6; O2SAT 98; BMI 22.3
--- NOTE | 2023-02-12 03:46 | PC.NURSE ---
Pt reports redness at the tip of the penis with an onset of a wk and 1/2 ago. Pt reports he started using a new soap and also had unprotected sex prior to onset. Pt denies pain, itchiness, discharge, n/v/d, fever, or pain with urination. Plan of care ongoing.
--- NOTE | 2023-02-12 04:40 | ED_ITS ---
HPI - General Adult General Chief complaint: General Medical Stated complaint: allergic reaction/skin irritation Time Seen by Provider: 02/12/23 04:40 Source: patient Mode of arrival: ambulatory Limitations: no limitations History of Present Illness HPI narrative: Patient allergic to latex has used latex condom few days ago noticed slight red spots on the glans with mild itching no other final discharge Related Data Home Medications Medication Instructions Recorded Confirmed ibuprofen 200 mg tablet 400 mg PO Q6H PRN Pain 05/02/21 05/02/21 Previous Rx's Medication Instructions Recorded albuterol sulfate 90 mcg/actuation 2 puff inhalation Q4-6H PRN 04/25/21 aerosol inhaler shortness of breath or wheezing #8.5 grams doxycycline hyclate 100 mg capsule 100 mg PO BID 10 days #20 caps 07/05/21 clobetasol 0.05 % topical ointment 1 appl topical BID #15 grams 02/12/23 (Temovate) diphenhydramine HCl 25 mg capsule 25 mg PO TID PRN itching #20 caps 02/12/23 (Benadryl) Allergies Allergy/AdvReac Type Severity Reaction Status Date / Time latex AdvReac Hives Verified 02/12/23 02:39 Review of Systems Review of Systems: Yes all other systems are reviewed and are negative PMFSH Past Medical History Medical History GERD (gastroesophageal reflux disease) Asthma Marijuana abuse, continuous Surgical History No history of previous surgery Social History Social History Alcohol intake: never Patient Tobacco Use Status: Never used Tobacco Substance Use Type: Marijuana Advance Directives: No Advance Directives Information Provided: Yes Current occupational status: employed 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 Oriented X3. No acute distress. ENT: Pharynx normal. Oral Mucosa moist Neck: Normal inspection. Neck supple. CVS: Normal heart rate and rhythm. Pulses normal. Respiratory: No respiratory distress. Equal air entry bilateral, Skin: Skin warm and dry. Small erythematous dots on the glans Medications Administered Discontinued Medications Generic Name Dose Route Start Last Admin Trade Name Freq PRN Reason Stop Dose Admin Diphenhydramine HCl 50 mg 02/12/23 05:06 02/12/23 05:41 Diphenhydramine Hcl 25 Mg Capsule PO 02/12/23 05:07 Not Given ONCE ONE Medical Decision Making Medical Decision Making [facility] Narrative: Patient likely with contact dermatitis secondary to later on his penis nontoxic look will prescribe cortisone cream and Benadryl Discharge Plan Discharge Clinical Impression: Allergic contact dermatitis due to latex Patient Disposition: Home, Self-Care Instructions: Contact Dermatitis (ED) Additional Instructions: Do not use rubber/latex Apply cortisone cream as prescribed twice daily until heals completely Take Benadryl for itching Prescriptions: New clobetasol [Temovate] 0.05 % ointment 1 appl topical BID Qty: 15 0RF diphenhydramine HCl [Benadryl] 25 mg capsule 25 mg PO TID PRN (Reason: itching) Qty: 20 0RF No Action ibuprofen 200 mg Tablet 400 mg PO Q6H PRN (Reason: Pain) doxycycline hyclate 100 mg capsule 100 mg PO BID 10 Days Qty: 20 0RF albuterol sulfate 90 mcg/actuation HFA aerosol inhaler 2 puff inhalation Q4-6H PRN (Reason: shortness of breath or wheezing) Qty: 8 .5 0RF Interventions: ED Discharge Assessment Last Done: 02/12/23 05:42 Discharge Date/Time: 02/12/23 05:43
--- NOTE | 2023-02-12 05:36 | PC.NURSE ---
Pt left ED without d/c paperwork. Provider Elena made aware. Pt left without receiving meds and d/c ppwrk Provider requested this RN call pt and inform him of prescriptions. This RN called and l/m for pt on cell phone listed advising meds were sent to the pharmacy and any questions to call ED.
== END 2023-02-12 05:43 | disposition home or self-care (01) ==
PROVIDERS: Emergency Provider Internal Medicine
DX: T65.811A Toxic effect of latex, accidental (unintentional), initial encounter (principal); R21 Rash and other nonspecific skin eruption; Y92.9 Unspecified place or not applicable
CPT/HCPCS: 99283

== ENCOUNTER 2023-10-14 19:09 | Emergency (ER) | payer OTHER, SELFPAY ==
[2023-10-14] VITALS (7 sets, daily range): BP systolic 99–120; BP diastolic 50–74; PULSE 60–77; RESP 15–18; TEMP 36.6–37.1; O2SAT 97–100; BMI 21.1
--- NOTE | ~2023-10-14 | XR_ITS ---
EXAMINATION: XR CHEST CLINICAL INFORMATION: Shortness of breath COMPARISON: Chest x-ray April 25, 2021 TECHNIQUE: Frontal portable view of the chest was obtained. 7:43 PM FINDINGS: No significant abnormality is noted involving the heart, lungs, mediastinum, bony thorax or soft tissues. XR/XR chest 1V IMPRESSION: Unremarkable examination.
--- NOTE | 2023-10-14 19:10 | ECG_ITS ---
Test Reason : SHORTNESS OF BREATH Blood Pressure : / mmHG Vent. Rate : 068 BPM Atrial Rate : 068 BPM P-R Int : 128 ms QRS Dur : 088 ms QT Int : 396 ms P-R-T Axes : 079 078 051 degrees QTc Int : 421 ms Sinus rhythm with marked sinus arrhythmia Right atrial enlargement Nonspecific ST abnormality Abnormal ECG When compared with ECG of 09-SEP-2020 15:02, No significant change was found Referred By: Fercho Nevarez Electronically Signed By:Kit Guaman
--- NOTE | 2023-10-14 19:11 | ED_ITS ---
HPI - General Adult General Chief complaint: General Medical Stated complaint: lungs hurt, difficulty breathing Time Seen by Provider: 10/14/23 19:20 Source: patient Mode of arrival: ambulatory Limitations: no limitations History of Present Illness HPI narrative: Patient is a 28-year-old male who presents to the emergency department for evaluation. 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 He reports being an asthmatic. He states that after leaving work ?he felt weird? she describes as a cramping pain beneath the right and left lower ribs and a productive cough with black specks in his phlegm. He admits to having associated nausea with this and shortness of breath. He states that he has not consumed anything to eat since yesterday night. When asked he states that he does not have an appetite. Although, he states he often does not have an appetite if he does not smoke marijuana and he did not smoke marijuana yesterday or today due to the ?weird feeling? in his chest. He appears very anxious, he reports his entire body feels heavy and tired. While having his serum labs drawn during triage he nearly syncopized, became diaphoretic and had to be assisted to the stretcher. He denies having near syncope in the past with blood draws. He denies any recent sick contacts. Related Data Home Medications ?Medication ?Instructions ?Recorded ?Confirmed ibuprofen 200 mg tablet 400 mg PO Q6H PRN Pain 05/02/21 05/02/21 Previous Rx's ?Medication ?Instructions ?Recorded albuterol sulfate 90 mcg/actuation 2 puff inhalation Q4-6H PRN 04/25/21 aerosol inhaler shortness of breath or wheezing #8.5 grams doxycycline hyclate 100 mg capsule 100 mg PO BID 10 days #20 caps 07/05/21 clobetasol 0.05 % topical ointment 1 appl topical BID #15 grams 02/12/23 (Temovate) diphenhydramine HCl 25 mg capsule 25 mg PO TID PRN itching #20 caps 02/12/23 (Benadryl) naproxen 500 mg tablet 500 mg PO BID PRN pain #14 tabs 10/14/23 Allergies Allergy/AdvReac Type Severity Reaction Status Date / Time latex AdvReac Hives Verified 10/14/23 19:13 Review of Systems 2 Review of Systems: Yes all other systems are reviewed and are negative [facility] Past Medical History Attestation statement: The following information was validated with the patient. Source: old records reviewed Medical History GERD (gastroesophageal reflux disease) Asthma Marijuana abuse, continuous Surgical History No history of previous surgery Social History Social History Alcohol intake: never Patient Tobacco Use Status: Never used Tobacco Smoked in Last 30 Days: No Use of substances other than those prescribed or required for medical reasons: Yes Substance Use Type: Marijuana Substance Use Frequency: Chronic Longstanding Any prior treatment program specific to substance use: No Advance Directives: No Advance Directives Information Provided: Yes Do you have a plan to hurt others: No Plan Current occupational status: employed 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 No acute distress.?Normal affect. Eyes: Pupils equal, round and reactive to light.? ENT: Pharynx normal.?? Neck: Normal inspection.? Neck supple.?? CVS: Heart sounds normal. Normal heart rate and rhythm.? Pulses normal.?? Respiratory: No respiratory distress.? Lung sounds clear to auscultation bilaterally?? Abdomen: Soft and non-tender. Normoactive bowel sounds. Skin: Skin warm and dry.? Normal skin color.? Extremities: No lower extremity edema.? No calf ttp? Neuro: Moves all extremities spontaneously. Sensation intact bilaterally. CN II- XII intact. No focal neuro deficits. Ambulates with normal steady gait. Course Course Course Narrative: This is an RME done by TERI Nevarez: Additional HPI, ROS, PE not included below will be deferred to primary provider. 28 yo m presents w/ lung pain x1 day and cough w/ black stuff coming out . 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 Denies sick contacts, fevers, chills, nausea, vomiting, abd pain. This has nver happened to him before Appears well. Reevaluation(s) Reevaluation #1: Patient's symptoms are significantly improved since arrival. He is calm at this time. Reports the cramping sensation he was previously experiencing has resolved. He is tolerating oral intake. At this time I feel that he is stable for discharge home, will trial course of anti-inflammatories. Patient advised that the new environment where he is currently working may be attributing to some of his symptoms, suggested that he trial a few more days as this is a new position for him, and if he continues to have these symptoms coming on after working then he may consider at that time whether this job is a good fit for him Medications Administered Discontinued Medications Generic Name Dose Route Start Last Admin Trade Name Freq PRN Reason Stop Dose Admin Sodium Chloride 1,000 mls @ 999 mls/hr 10/14/23 20:00 10/14/23 19:56 Ns IV 10/14/23 21:00 999 mls/hr .Q1H1M SHALONDA Administration Ketorolac Tromethamine 15 mg 10/14/23 19:55 10/14/23 20:03 Ketorolac Tromethamine 15 Mg/Ml Vial IVPUSH 10/14/23 19:56 15 mg ONCE ONE Administration Ondansetron HCl 4 mg 10/14/23 19:55 10/14/23 20:03 Ondansetron Hcl 4 Mg/2 Ml Vial IVPUSH 10/14/23 19:56 4 mg ONCE ONE Administration Medical Decision Making Medical Decision Making [facility] Narrative: Patient is a 28-year-old male past medical history of depression, GERD, asthma who presents emergency department for evaluation of bilateral lower rib/upper abdominal ?cramping? and productive cough with shortness of breath as per HPI. Experienced a near syncopal episode after having blood drawn in triage. He appears very anxious at the time of my evaluation. He has however no respiratory distress, he is afebrile without tachycardia tachypnea or hypoxia. His lung sounds are clear bilaterally. His abdominal examination is benign. Will obtain CBC to evaluate for leukocytosis/ anemia, CMP and lipase to evaluate for abnormal electrolytes /abnormal renal function/ abnormal hepatic/biliary function, EKG and troponin to evaluate for ischemia/ACS. Chest x-ray to evaluate for consolidation/ infiltrate/ mass/ pulmonary congestion and Urinalysis. Differential Diagnosis Differential Diagnoses: The differential diagnosis associated with the presentation includes (Viral syndrome, asthma exacerbation, pneumonia, arrhythmia, electrolyte abnormality, dehydration, hypoglycemia, Suspect less likely ACS due to no risk factors, perc negative unlikely PE) Admission/Observation Consideration of admission/observation: Escalation of care including admission/observation considered Lab Data MDM Lab Attestation statement: I reviewed the patient's lab results. CBC reveals a mild leukocytosis of 13.4 with left shift, no anemia or thrombocytopenia. No electrolyte derangement. No ODIN. 10/14/23 19:41 10/14/23 19:41 Labs: Lab Results 10/14/23 10/14/23 Range/Units 19:39 19:41 WBC 13.4 H (4.8-10.8) X10*3/uL RBC 5.64 (4.60-5.80) X10*6/uL Hgb 16.2 (14.0-18.0) g/dl Hct 46.1 (42.0-52.0) % MCV 81.7 (80.0-98.0) fL MCH 28.7 (27.0-33.0) pg MCHC 35.1 (31.0-36.0) g/dl RDW 12.5 (11.0-16.0) % Plt Count 236 (160-400) X10*3/uL MPV 10.6 (9.4-12.4) fL Immature Gran % (Auto) 0.2 (0.0-0.4) % Neut % (Auto) 82.1 H (45-73) % Lymph % (Auto) 11.0 L (20-40) % [place] % (Auto) 6.1 (2-11) % Eos % (Auto) 0.2 (0-4) % Baso % (Auto) 0.4 (0-2) % Lymph # (Auto) 1.5 (1.2-4.9) X10*3/uL [place] # (Auto) 0.8 (0.1-1.2) X10*3/uL Eos # (Auto) 0.0 (0.0-0.4) X10*3/uL Baso # (Auto) 0.1 (0.0-0.2) X10*3/uL Abs Immat Gran (auto) 0.03 (0.00-0.03) X10*3/uL Absolute Neuts (auto) 11.0 H (2.0-8.3) x10*3/uL Absolute Nucleated RBC 0.000 (0.0-0.012) X10*3/uL Nucleated RBC % (auto) 0.0 (0.0-0.2) /100WBC PT 13.7 H (11.1-13.3) SEC INR 1.1 (0.9-1.1) Sodium 138 (135-145) mmol/L Potassium 4.1 (3.3-5.1) mmol/L Chloride 98 (96-108) mmol/L Carbon Dioxide 29 (22-29) mmol/L Anion Gap 15 (12-20) BUN 19 H (9-16) mg/dL Creatinine 1.02 (0.5-1.4) mg/dL Estim Creat Clear Calc 112.6 Estimated GFR > 60 POC Glucose 97 (60-115) mg/dL Random Glucose 97 (60-115) mg/dL Calcium 10.9 H D (8.4-10.2) mg/dL Total Bilirubin 0.7 (0.0-1.0) mg/dL AST 23 (5-37) U/L ALT 19 (0-40) U/L Alkaline Phosphatase 118 H (39-117) U/L Total Creatine Kinase 266 H (38-174) U/L Troponin I High Sens < 2.7 (<3.5-35.0) ng/L Total Protein 9.2 H (6.5-8.0) g/dL Albumin 5.6 H (3.5-5.0) g/dL Influenza Type A (PCR) NEGATIVE (Negative) Influenza Type B (PCR) NEGATIVE (Negative) RSV RNA Qual (PCR) NEGATIVE (Negative) SARS-CoV-2 RNA (RT-PCR) NEGATIVE (Negative) Independent Interpretation I performed an independent interpretation of an: EKG and Plain X-Ray (No consolidation or infiltrates) Interpretation: Rate: 68 Rhythm:? Sinus arrhythmia Normal P waves.? Normal SINTIA.?? Normal QRS complex.?? ST T wave :??J-point elevation V1-V3, no ST elevation, no ST depression, peaked T-waves in V1-V4 qTC: 421 The study has been interpreted contemporaneously by me. Radiology Impression Discussion of test interpretation with radiology: I have reviewed the radiologist's reading. Radiologist Impression: XR/XR chest 1V IMPRESSION: Unremarkable examination. Discharge Plan Discharge Clinical Impression: Cough, Rib pain Patient Disposition: Home, Self-Care Additional Instructions: You can take naproxen 500 mg every 12 hours as needed for pain, in addition to Tylenol 500 mg, 2 tablets (1,000mg) every 4-6 hours as needed for pain, but not to exceed 3 doses daily (3,000mg).? While taking naproxen do not take [id number] ibuprofen/Motrin/Advil or Aleve or aspirin. Contact primary care provider and arrange for a follow-up visit. Return back to emergency department any new or worsening symptoms or concerns Prescriptions: New naproxen 500 mg tablet 500 mg PO BID PRN (Reason: pain) Qty: 14 0RF No Action ibuprofen 200 mg Tablet 400 mg PO Q6H PRN (Reason: Pain) doxycycline hyclate 100 mg capsule 100 mg PO BID 10 Days Qty: 20 0RF albuterol sulfate 90 mcg/actuation HFA aerosol inhaler 2 puff inhalation Q4-6H PRN (Reason: shortness of breath or wheezing) Qty: 8.5 0RF clobetasol [Temovate] 0.05 % ointment 1 appl topical BID Qty: 15 0RF diphenhydramine HCl [Benadryl] 25 mg capsule 25 mg PO TID PRN (Reason: itching) Qty: 20 0RF Referrals: Physician,Unknown J [Primary Care Provider] - Print Language: Irish
[2023-10-14 19:42] LABS: Glucose, Whole Blood 97 mg/dL (60-115)
--- NOTE | 2023-10-14 19:43 | MHC.EDTECH ---
this tech took on care at 1935, pt changed over into hospital gown, covid swab done, ice packs given r/t difficulty w/ bloodwork
[2023-10-14 19:46] LABS: MANUAL DIFF FLAG NO
[2023-10-14 19:47] LABS: Basophils Absolute Auto 0.1 X10*3/uL (0.0-0.2); Basophils Percent Auto 0.4 % (0-2); Eosinophils Percent Auto 0.2 % (0-4); Hematocrit 46.1 % (42.0-52.0); Hemoglobin 16.2 g/dl (14.0-18.0); Imm Gran Abs Auto 0.03 X10*3/uL (0.00-0.03); Imm Gran Pct Auto 0.2 % (0.0-0.4); Lymphocytes Absolute Auto 1.5 X10*3/uL (1.2-4.9); Mean Corpuscular HGB Conc 35.1 g/dl (31.0-36.0); Mean Corpuscular Hemoglobin 28.7 pg (27.0-33.0); Mean Corpuscular Volume 81.7 fL (80.0-98.0); Mean Platelet Volume 10.6 fL (9.4-12.4); Monocytes Absolute Auto 0.8 X10*3/uL (0.1-1.2); Monocytes Percent Auto 6.1 % (2-11); Neutrophils Percent Auto 82.1 % (45-73); Platelet Count 236 X10*3/uL (160-400); Red Blood Count 5.64 X10*6/uL (4.60-5.80); Red Cell Distribution Width 12.5 % (11.0-16.0); White Blood Count 13.4 X10*3/uL (4.8-10.8)
--- NOTE | 2023-10-14 19:48 | PC.NURSE ---
Pt had syncopal episode while getting blood work in triage. Diaphoretic . Brought to room and stretcher. IV #18 placed R-AC. POC:97, VS documented. Pt c/o pain to R/LUQ and reports SOB. Cramping throughout stomach. Provider came to bedside, pt alert and oriented X4. Pt feels heavy and tired. Verbal order for Liter of NS.
[2023-10-14 19:54] LABS: INTERNATIONAL NORM RATIO 1.1 (0.9-1.1); Prothrombin Time 13.7 SEC (11.1-13.3)
[2023-10-14] MEDS: 0.9 % Sodium Chloride 1,000 ML 999 ML IV (19:56)
[2023-10-14 20:03] LABS: Alanine Aminotransferase 19 U/L (0-40); Albumin Level 5.6 g/dL (3.5-5.0); Alkaline Phosphatase 118 U/L (39-117); Anion Gap 15 (12-20); Aspartate Amino Transferase 23 U/L (5-37); Bilirubin Total 0.7 mg/dL (0.0-1.0); Blood Urea Nitrogen 19 mg/dL (9-16); Calcium 10.9 mg/dL (8.4-10.2); Carbon Dioxide 29 mmol/L (22-29); Chloride 98 mmol/L (96-108); Creatinine Clr Calc Pharmacy 112.6; Estimated Glomerular Filt Rate > 60; Glucose Random 97 mg/dL (60-115); Potassium 4.1 mmol/L (3.3-5.1); Sodium 138 mmol/L (135-145); Total Protein 9.2 g/dL (6.5-8.0)
[2023-10-14] MEDS: ondansetron HCL 4 MG/2 ML VIAL IVPUSH (20:03)
[2023-10-14] MEDS: Ketorolac Tromethamine 15 MG/ML VIAL IVPUSH (20:03)
[2023-10-14 20:11] LABS: Troponin-I High Sensitivity < 2.7 ng/L (<3.5-35.0)
[2023-10-14 20:24] LABS: Influenza A PCR NEGATIVE (Negative); Influenza B PCR NEGATIVE (Negative); Resp Syncy Virus RNA Qual PCR NEGATIVE (Negative); SARS COV2 PCR INHOUSE NEGATIVE (Negative)
== END 2023-10-14 22:16 | disposition home or self-care (01) ==
PROVIDERS: Nurse Practitioner Family; Physician Assistant; Emergency Provider Internal Medicine
DX: R07.81 Pleurodynia (principal); R25.2 Cramp and spasm; R06.02 Shortness of breath; R11.0 Nausea; Z79.899 Other long term (current) drug therapy; Z03.818 Encounter for observation for suspected exposure to other biological agents ruled out
CPT/HCPCS: 0241U; 36415; 71045; 80053; 82550; 82947; 84484; 85025; 85610; 93005; 96374; 96375; 99284; 99285; J1885; J2405

== ENCOUNTER → 2023-10-14 19:10 | Outpatient (BNV) | payer OTHER, SELFPAY | PROVIDERS: Emergency Provider Internal Medicine; Visit Provider Internal Medicine Cardiovascular Disease | DX: R94.31 Abnormal electrocardiogram [ECG] [EKG] (principal) | CPT/HCPCS: 93010 ==

== ENCOUNTER 2024-02-08 17:00 | Emergency (ER) | payer OTHER, SELFPAY ==
--- NOTE | ~2024-02-08 | XR_ITS ---
EXAMINATION: XR CHEST CLINICAL INFORMATION: Cough. Concern for pelvic pneumonia. COMPARISON: 10/14/2023 and selected priors TECHNIQUE: Frontal view of the chest was obtained. FINDINGS: No significant abnormality is noted involving the heart, lungs, mediastinum, bony thorax or soft tissues. XR/XR chest 1V IMPRESSION: Unremarkable examination. Electronically signed by: Diego Winslow MD 02/08/2024 05:56 PM EDT RP
[2024-02-08 17:19] VITALS: BP 125/58; PULSE 82; RESP 20; TEMP 37.4; O2SAT 99; BMI 22.4
--- NOTE | 2024-02-08 17:23 | ED.GENADULT ---
HPI - General Adult General Chief complaint: Upper Respiratory Symptoms Stated complaint: ?covid Time Seen by Provider: 02/08/24 18:34 History of Present Illness ED Provider: Dr. Dallas HPI narrative: 28 y/o M patient; without significant PMH; presents from home reporting two days of generalized body aches, non-productive cough, shortness of breath, generalized non-focal headache, and NBNB vomiting. The patient has known sick contacts positive for COVID. He otherwise denies: chest pain, abdominal pain. Related Data Home Medications ?Medication ?Instructions ?Recorded ?Confirmed ibuprofen 200 mg tablet 400 mg PO Q6H PRN Pain 05/02/21 05/02/21 Previous Rx's ?Medication ?Instructions ?Recorded albuterol sulfate 90 mcg/actuation 2 puff inhalation Q4-6H PRN 04/25/21 aerosol inhaler shortness of breath or wheezing #8.5 grams doxycycline hyclate 100 mg capsule 100 mg PO BID 10 days #20 caps 07/05/21 clobetasol 0.05 % topical ointment 1 appl topical BID #15 grams 02/12/23 (Temovate) diphenhydramine HCl 25 mg capsule 25 mg PO TID PRN itching #20 caps 02/12/23 (Benadryl) naproxen 500 mg tablet 500 mg PO BID PRN pain #14 tabs 10/14/23 albuterol sulfate 90 mcg/actuation 2 puff inhalation Q6H PRN 02/08/24 aerosol inhaler shortness of breath or wheezing 7 days #8.5 grams ondansetron 4 mg disintegrating 4 mg PO Q8H PRN nausea and 02/08/24 tablet vomiting 7 days #30 tabs Allergies Allergy/AdvReac Type Severity Reaction Status Date / Time latex AdvReac Hives Verified 02/08/24 17:21 Review of Systems Review of Systems: Yes all other systems are reviewed and are negative PMFSH Past Medical History Attestation statement: The following information was validated with the patient. 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 Const General: cooperative and no acute distress HENMT Head: Yes normal to inspection and Yes atraumatic Eyes General: appearance normal, both eyes and all related structures Pupils: Equal, round and reactive pupils present Neck Neck: Yes normal visual inspection, Yes full ROM, Yes supple and No tender Chest Chest palpation & inspection: normal inspection of the chest and normal palpation of entire chest wall Resp Effort & Inspection: normal respiratory effort, able to speak in complete sentences, Actively coughing and no respiratory distress Auscultation: clear to auscultation bilaterally Cardio Rate: regular rate Rhythm: regular rhythm Peripheral pulses: Peripheral pulses 2+ throughout GI Inspection: Yes normal to inspection, No Abdominal wall edema and No distended Palpation (GI): Soft to palpation, not firm, nontender, no guarding and not rigid Auscultation: normal bowel sounds Back/Spine/Pelvis Back: No back tenderness Neuro Cranial nerves: Yes Equal, round and reactive pupils present Course Course Course Narrative: This is an RME: Additional HPI, ROS, PE not included below will be deferred to primary provider. RME assessment and note performed by: Delphine Fregoso PA-C This is a [id number]-male who presenst to the ER with a complaint of body aches, cough, SOB and ATKINS. Also reporting nausea and vomiting. Plan: labs, xray, viral swabs Reevaluation(s) Reevaluation #1: Patient is afebrile and hemodynamically stable. He did test positive for COVID. CXR without evidence of focal infiltrate. Triage labs reviewed and unremarkable. Ambulatory SpO2 99% on RA. Plan: Discharge to home with supportive care Condition: Stable Rx albuterol MDI and Zofran sent to pharmacy Medical Decision Making Lab Data 02/08/24 17:42 02/08/24 17:42 Labs: Lab Results 02/08/24 Range/Units 17:42 WBC 12.1 H (4.8-10.8) X10*3/uL RBC 5.20 (4.60-5.80) X10*6/uL Hgb 15.0 (14.0-18.0) g/dl Hct 43.5 (42.0-52.0) % MCV 83.7 (80.0-98.0) fL MCH 28.8 (27.0-33.0) pg MCHC 34.5 (31.0-36.0) g/dl RDW 12.4 (11.0-16.0) % Plt Count 193 (160-400) X10*3/uL MPV 10.7 (9.4-12.4) fL Immature Gran % (Auto) 0.3 (0.0-0.4) % Neut % (Auto) 88.6 H (45-73) % Lymph % (Auto) 3.5 L (20-40) % [place] % (Auto) 7.3 (2-11) % Eos % (Auto) 0.1 (0-4) % Baso % (Auto) 0.2 (0-2) % Lymph # (Auto) 0.4 L (1.2-4.9) X10*3/uL [place] # (Auto) 0.9 (0.1-1.2) X10*3/uL Eos # (Auto) 0.0 (0.0-0.4) X10*3/uL Baso # (Auto) 0.0 (0.0-0.2) X10*3/uL Abs Immat Gran (auto) 0.04 H (0.00-0.03) X10*3/uL Absolute Neuts (auto) 10.7 H (2.0-8.3) x10*3/uL Absolute Nucleated RBC 0.000 (0.0-0.012) X10*3/uL Nucleated RBC % (auto) 0.0 (0.0-0.2) /100WBC Sodium 143 (135-145) mmol/L Potassium 3.7 (3.3-5.1) mmol/L Chloride 105 (96-108) mmol/L Carbon Dioxide 26 (22-29) mmol/L Anion Gap 16 (12-20) BUN 8 L (9-16) mg/dL Creatinine 0.80 (0.5-1.4) mg/dL Estim Creat Clear Calc 148.1 Estimated GFR > 60 Random Glucose 102 (60-115) mg/dL Calcium 10.0 D (8.4-10.2) mg/dL Magnesium 1.7 (1.6-2.6) mg/dL Total Bilirubin 0.6 (0.0-1.0) mg/dL AST 13 (5-37) U/L ALT 13 (0-40) U/L Alkaline Phosphatase 99 (39-117) U/L Total Protein 8.1 H (6.5-8.0) g/dL Albumin 5.1 H (3.5-5.0) g/dL Lipase 7 L (8-78) U/L Influenza Type A (PCR) NEGATIVE (Negative) Influenza Type B (PCR) NEGATIVE (Negative) RSV RNA Qual (PCR) NEGATIVE (Negative) SARS-CoV-2 RNA (RT-PCR) POSITIVE A (Negative) S. pyogenes GrpA ROMEO Negative (Negative) Radiology Impression Discussion of test interpretation with radiology: I have reviewed the radiologist's reading. Radiologist Impression: Ordering Physician: Generic ED Physician Date of Service: 02/08/24 Procedure(s): XR chest 1V Accession Number(s): [id number] cc: Generic ED Physician; Physician,None ~ EXAMINATION: XR CHEST CLINICAL INFORMATION: Cough. Concern for pelvic pneumonia. COMPARISON: 10/14/2023 and selected priors TECHNIQUE: Frontal view of the chest was obtained. FINDINGS: No significant abnormality is noted involving the heart, lungs, mediastinum, bony thorax or soft tissues. XR/XR chest 1V IMPRESSION: Unremarkable examination. Electronically signed by: Diego Winslow MD 02/08/2024 05:56 PM EDT Discharge Plan Discharge Clinical Impression: COVID-19 Patient Disposition: Home, Self-Care Instructions: COVID-19 (Coronavirus Disease 2019) (ED) Additional Instructions: As we discussed, you were diagnosed with COVID today. It is important that you remain in isolation for the next 5 days. Follow up with your PCP after this time for re-evaluation. You can use ibuprofen 400mg and tylenol 1g every 6 hours as needed for generalized aches and pains. Return to the emergency department for: Difficulty breathing Chest pain Passing out Prescriptions: New albuterol sulfate 90 mcg/actuation HFA aerosol inhaler 2 puff inhalation Q6H PRN (Reason: shortness of breath or wheezing) 7 Days Qty: 8.5 0RF ondansetron 4 mg tablet,disintegrating 4 mg PO Q8H PRN (Reason: nausea and vomiting) 7 Days Qty: 30 0RF No Action ibuprofen 200 mg Tablet 400 mg PO Q6H PRN (Reason: Pain) doxycycline hyclate 100 mg capsule 100 mg PO BID 10 Days Qty: 20 0RF albuterol sulfate 90 mcg/actuation HFA aerosol inhaler 2 puff inhalation Q4-6H PRN (Reason: shortness of breath or wheezing) Qty: 8.5 0RF clobetasol [Temovate] 0.05 % ointment 1 appl topical BID Qty: 15 0RF diphenhydramine HCl [Benadryl] 25 mg capsule 25 mg PO TID PRN (Reason: itching) Qty: 20 0RF naproxen 500 mg tablet 500 mg PO BID PRN (Reason: pain) Qty: 14 0RF Print Language: Algerian
[2024-02-08 17:46] LABS: MANUAL DIFF FLAG NO
[2024-02-08 17:49] LABS: Basophils Percent Auto 0.2 % (0-2); Eosinophils Percent Auto 0.1 % (0-4); Hematocrit 43.5 % (42.0-52.0); Imm Gran Abs Auto 0.04 X10*3/uL (0.00-0.03); Imm Gran Pct Auto 0.3 % (0.0-0.4); Lymphocytes Absolute Auto 0.4 X10*3/uL (1.2-4.9); Lymphocytes Percent Auto 3.5 % (20-40); Mean Corpuscular HGB Conc 34.5 g/dl (31.0-36.0); Mean Corpuscular Hemoglobin 28.8 pg (27.0-33.0); Mean Corpuscular Volume 83.7 fL (80.0-98.0); Mean Platelet Volume 10.7 fL (9.4-12.4); Monocytes Absolute Auto 0.9 X10*3/uL (0.1-1.2); Monocytes Percent Auto 7.3 % (2-11); Neutrophils Absolute Auto 10.7 x10*3/uL (2.0-8.3); Neutrophils Percent Auto 88.6 % (45-73); Platelet Count 193 X10*3/uL (160-400); Red Cell Distribution Width 12.4 % (11.0-16.0); White Blood Count 12.1 X10*3/uL (4.8-10.8)
[2024-02-08 18:00] LABS: Alanine Aminotransferase 13 U/L (0-40); Albumin Level 5.1 g/dL (3.5-5.0); Alkaline Phosphatase 99 U/L (39-117); Anion Gap 16 (12-20); Aspartate Amino Transferase 13 U/L (5-37); Bilirubin Total 0.6 mg/dL (0.0-1.0); Blood Urea Nitrogen 8 mg/dL (9-16); Carbon Dioxide 26 mmol/L (22-29); Chloride 105 mmol/L (96-108); Creatinine Clr Calc Pharmacy 148.1; Estimated Glomerular Filt Rate > 60; Glucose Random 102 mg/dL (60-115); Lipase 7 U/L (8-78); Magnesium 1.7 mg/dL (1.6-2.6); Potassium 3.7 mmol/L (3.3-5.1); Sodium 143 mmol/L (135-145); Total Protein 8.1 g/dL (6.5-8.0)
[2024-02-08 18:13] LABS: IDNOW Serial# 08D9AD1C; Strep A Nucleic Acid Negative (Negative)
[2024-02-08 18:23] LABS: Influenza A PCR NEGATIVE (Negative); Influenza B PCR NEGATIVE (Negative); Resp Syncy Virus RNA Qual PCR NEGATIVE (Negative); SARS COV2 PCR INHOUSE POSITIVE (Negative)
[2024-02-08 19:04] VITALS: BP 106/62; PULSE 100; RESP 20; TEMP 37.2; O2SAT 99
[2024-02-08 19:06] VITALS: BP 106/62; PULSE 100; RESP 20; TEMP 37.2; O2SAT 99
== END 2024-02-08 19:06 | disposition home or self-care (01) ==
PROVIDERS: Physician Assistant Medical; Emergency Provider Emergency Medicine
DX: M79.10 Myalgia, unspecified site (principal); R05.9 Cough, unspecified; R06.02 Shortness of breath; R51.9 Headache, unspecified; Z79.899 Other long term (current) drug therapy; Z03.818 Encounter for observation for suspected exposure to other biological agents ruled out
CPT/HCPCS: 0241U; 36415; 71045; 80053; 83690; 83735; 85025; 87651; 99283; 99284

== ENCOUNTER 2024-08-20 18:06 | Emergency (ER) | payer OTHER, SELFPAY ==
--- NOTE | ~2024-08-20 | XR_ITS ---
CLINICAL HISTORY: vomiting, SOB 2 view chest x-ray Comparison: CR/SR - XR CHEST 1V - 02/08/24 17:33 EDT Findings: No consolidation or effusion. Mild increase of lung markings is unchanged from prior examination. Normal size heart. No acute fracture. IMPRESSION: 1. No acute findings. This document has been electronically signed by: Lonny Shelley MD on 08/20/2024 20:41:10
[2024-08-20 18:08] VITALS: BP 113/70; PULSE 85; RESP 18; TEMP 37.2; O2SAT 99; BMI 22.1
--- NOTE | 2024-08-20 18:09 | ED.GENADULT ---
HPI - General Adult General Chief complaint: Nausea/Vomiting/Diarrhea Stated complaint: ? covid symptoms Time Seen by Provider: 08/20/24 19:16 Source: patient and other (girlfriend at bedside) Mode of arrival: ambulatory Limitations: no limitations History of Present Illness ED Provider: Rosa Pradhan HPI narrative: 29 year old male with PMHx of asthma presents to the ED due to vomiting and body aches. Patient states he started feeling unwell last night (08/19) with body aches and began vomiting and had approximately 3 episodes of watery diarrhea. He reports having a headache and home temperature of 100 degrees. Girlfriend reports she gave him Tylenol severe sinus earlier this morning for symptom relief without effect. He denies chest pain, SOB, cough, black or bloody stool, bilious or bloody vomit, vision changes. MD complaint: body aches, vomiting Related Data Home Medications ?Medication ?Instructions ?Recorded ?Confirmed ibuprofen 200 mg tablet 400 mg PO Q6H PRN Pain 05/02/21 05/02/21 Previous Rx's ?Medication ?Instructions ?Recorded albuterol sulfate 90 mcg/actuation 2 puff inhalation Q4-6H PRN 04/25/21 aerosol inhaler shortness of breath or wheezing #8.5 grams doxycycline hyclate 100 mg capsule 100 mg PO BID 10 days #20 caps 07/05/21 clobetasol 0.05 % topical ointment 1 appl topical BID #15 grams 02/12/23 (Temovate) diphenhydramine HCl 25 mg capsule 25 mg PO TID PRN itching #20 caps 02/12/23 (Benadryl) naproxen 500 mg tablet 500 mg PO BID PRN pain #14 tabs 10/14/23 albuterol sulfate 90 mcg/actuation 2 puff inhalation Q6H PRN 02/08/24 aerosol inhaler shortness of breath or wheezing 7 days #8.5 grams ondansetron 4 mg disintegrating 4 mg PO Q8H PRN nausea and 02/08/24 tablet vomiting 7 days #30 tabs acetaminophen 325 mg tablet 650 mg (2 x 325 mg) PO Q4H PRN 08/20/24 (Tylenol) fever or pain #30 tabs ibuprofen 600 mg tablet 600 mg PO Q6H PRN fever or pain 08/20/24 #30 tabs ondansetron 4 mg disintegrating 4 mg PO Q6H PRN nausea and 08/20/24 tablet vomiting #12 tabs Allergies Allergy/AdvReac Type Severity Reaction Status Date / Time latex AdvReac Hives Verified 08/20/24 18:10 Review of Systems Review of Systems: Yes all other systems are reviewed and are negative Constitutional: Constitutional: Reports no additional constitutional complaints, Reports body ache(s), Denies chills, Reports fever(s), Reports headache(s), Reports malaise and Denies weakness Eyes: Eyes: Reports no additional eye complaints and Denies change in vision ENT: Reports system reviewed and no additional complaints, except as documented, Denies dizziness, Reports headache(s), Denies nasal congestion, Denies nasal discharge and Denies neck pain Cardiovascular: Cardiovascular: Reports no additional cardiovascular complaints, Denies chest pain, Denies leg edema and Denies dyspnea Respiratory: Respiratory: Reports no additional respiratory complaints, Denies cough and Denies dyspnea Gastrointestinal: Gastrointestinal: Reports no additional gastrointestinal complaints, Denies abdominal pain, Reports diarrhea, Denies nausea and Reports vomiting Genitourinary: Genitourinary: Denies urinary incontinence Musculoskeletal: Musculoskeletal: Reports no additional musculoskeletal complaints, Denies back pain, Denies arthralgias, Denies joint swelling, Denies neck pain, Denies numbness and Denies tingling Integumentary/Breasts: Skin/Breast: Reports system reviewed and no additional complaints, except as docu and Denies rash Neurologic: Reports system reviewed and no additional complaints, except as documented, Denies Abnormal speech present, Denies dizziness, Reports headache(s), Denies numbness, Denies tingling and Denies weakness [facility] Past Medical History Attestation statement: The following information was validated with the patient. 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 ED Vital Signs: Vital Signs - 24 hr 08/20/24 18:08 08/20/24 20:32 Temperature 99.0 F 98.4 F Pulse Rate 85 66 Respiratory Rate 18 20 Blood Pressure 113/70 108/49 L Pulse Oximetry 99 95 Oxygen Delivery Method Room Air Room Air BMI result Body Mass Index 22.1 Const General: cooperative, healthy appearing and no acute distress Orientation/consciousness: patient oriented x3 Limitations: no limitations HENMT Head: Yes normal to inspection Ears: hearing grossly normal bilaterally General nose exam: Normal external nose present Face and sinus: Yes normal facial exam Mouth: Normal oral and palatal mucosa present Throat: Yes posterior oropharynx normal, Yes tonsils normal and Yes uvula midline Eyes General: appearance normal, both eyes and all related structures Pupils: Equal, round and reactive pupils present Neck Neck: Yes normal visual inspection Chest Chest palpation & inspection: normal inspection of the chest Resp Effort & Inspection: normal respiratory effort Auscultation: clear to auscultation bilaterally Cardio Rate: regular rate Rhythm: regular rhythm Peripheral pulses: Peripheral pulses 2+ throughout GI Inspection: Yes normal to inspection Palpation (GI): Soft to palpation, nontender, no guarding and No Rebound tenderness present Auscultation: normal bowel sounds Back/Spine/Pelvis Thoracic/Lumbar Spine: thoracic and lumbar spine normal to inspection Skin General skin exam: no rashes or lesions noted Neuro General: patient oriented x3, no focal motor deficits and normal sensation to monofilament Cranial nerves: Yes Equal, round and reactive pupils present Cognition (Neuro): normal cognition Speech: No Abnormal speech present Gait exam (Neuro): Normal gait present Motor exam (neuro): 5/5 motor strength present throughout Extrem General: Yes normal to inspection Course Course Course Narrative: RME, this is a rapid medical exam performed by Sam Christy please refer to primary provider for complete H&P- 29 year old female presents for evaluation of flu-like symptoms. His chief complaint is nausea and vomiting with shortness of breath. Denies cough or sick contacts. Plan for labs and viral swabs Reevaluation(s) Reevaluation #1: 2039-patient reports feeling much improved. Tolerating p.o.. Vitals are stable. Lab work unremarkable. Viral testing is negative. Likely viral syndrome. Recommend supportive measures at home. Reviewed worrisome signs and symptoms of when to return to the emergency room. Comfortable plan for discharge home. Medications Administered Discontinued Medications Generic Name Dose Route Start Last Admin Trade Name Rosalee PRN Reason Stop Dose Admin Sodium Chloride 1,000 mls @ 999 mls/hr 08/20/24 19:22 08/20/24 19:31 Ns IV 08/20/24 20:22 999 mls/hr .Q1H1M STA Administration Ketorolac Tromethamine 15 mg 08/20/24 19:22 08/20/24 19:31 Ketorolac Tromethamine 15 Mg/Ml Vial IVPUSH 08/20/24 19:23 15 mg ONCE ONE Administration Ondansetron HCl 4 mg 08/20/24 19:22 08/20/24 19:31 Ondansetron Hcl 4 Mg/2 Ml Vial IVPUSH 08/20/24 19:23 4 mg ONCE ONE Administration Medical Decision Making Medical Decision Making [facility] Narrative: 29 year old male with PMHx of asthma presents to the ED due to vomiting and body aches. Patient states he started feeling unwell last night (08/19) with body aches and began vomiting and had approximately 3 episodes of watery diarrhea. He reports having a headache and home temperature of 100 degrees. Girlfriend reports she gave him Tylenol severe sinus earlier this morning for symptom relief without effect. He denies chest pain, SOB, cough, black or bloody stool, bilious or bloody vomit, vision changes. Patient vital signs stable low grade fever 99.0, in no acute distress, appears non-toxic. Will obtain labs, viral swabs. Will start IV fluids, antiemetic, and toradol for pain management. At this time suspect viral illness as physical exam is benign. Differential Diagnosis Differential Diagnoses: The differential diagnosis associated with the presentation includes viral illness, gastritis, electrolyte abnormality, Low suspicion for acute abdomen based on benign physical exam Admission/Observation Consideration of admission/observation: Escalation of care including admission/observation considered Lab Data [facility] Lab Attestation statement: I reviewed the patient's lab results. 08/20/24 18:18 08/20/24 18:18 Labs: Lab Results 08/20/24 Range/Units 18:18 WBC 11.0 H (4.8-10.8) X10*3/uL RBC 5.08 (4.60-5.80) X10*6/uL Hgb 14.5 (14.0-18.0) g/dl Hct 42.1 (42.0-52.0) % MCV 82.9 (80.0-98.0) fL MCH 28.5 (27.0-33.0) pg MCHC 34.4 (31.0-36.0) g/dl RDW 12.7 (11.0-16.0) % Plt Count 167 (160-400) X10*3/uL MPV 10.7 (9.4-12.4) fL Immature Gran % (Auto) 0.4 (0.0-0.4) % Neut % (Auto) 83.2 H (45-73) % Lymph % (Auto) 6.6 L (20-40) % [place] % (Auto) 8.6 (2-11) % Eos % (Auto) 0.7 (0-4) % Baso % (Auto) 0.5 (0-2) % Lymph # (Auto) 0.7 L (1.2-4.9) X10*3/uL [place] # (Auto) 0.9 (0.1-1.2) X10*3/uL Eos # (Auto) 0.1 (0.0-0.4) X10*3/uL Baso # (Auto) 0.1 (0.0-0.2) X10*3/uL Abs Immat Gran (auto) 0.04 H (0.00-0.03) X10*3/uL Absolute Neuts (auto) 9.2 H (2.0-8.3) x10*3/uL Absolute Nucleated RBC 0.000 (0.0-0.012) X10*3/uL Nucleated RBC % (auto) 0.0 (0.0-0.2) /100WBC Sodium 141 (135-145) mmol/L Potassium 3.7 (3.3-5.1) mmol/L Chloride 105 (96-108) mmol/L Carbon Dioxide 29 (22-29) mmol/L Anion Gap 11 L (12-20) BUN 9 (9-16) mg/dL Creatinine 0.91 (0.5-1.4) mg/dL Estim Creat Clear Calc 131.2 Estimated GFR > 60 Random Glucose 98 (60-115) mg/dL Calcium 9.6 (8.4-10.2) mg/dL Total Bilirubin 0.5 (0.0-1.0) mg/dL AST 19 (5-37) U/L ALT 17 (0-40) U/L Alkaline Phosphatase 100 (39-117) U/L Total Protein 7.6 (6.5-8.0) g/dL Albumin 4.8 (3.5-5.0) g/dL Lipase 9 (8-78) U/L Influenza Type A (PCR) NEGATIVE (Negative) Influenza Type B (PCR) NEGATIVE (Negative) RSV RNA Qual (PCR) NEGATIVE (Negative) SARS-CoV-2 RNA (RT-PCR) NEGATIVE (Negative) Independent Interpretation I performed an independent interpretation of an: Plain X-Ray Interpretation: I independently reviewed the x-ray and agree with the radiologist's Radiology Impression Discussion of test interpretation with radiology: I have reviewed the radiologist's reading. Radiologist Impression: [place] [id number] XRay Report Signed Patient: Erickson Tellez MR#: [id number] : 1995 Acct:[id number] Age/Sex: 29 / M ADM Date: 08/20/24 Loc: .ED Attending Dr: Ordering Physician: Rosa Pradhan NP Date of Service: 08/20/24 Procedure(s): XR chest 2V Accession Number(s): [id number] cc: Rosa Pradhan NP; Physician,None ~ CLINICAL HISTORY: vomiting, SOB 2 view chest x-ray Comparison: CR/SR - XR CHEST 1V - 02/08/24 17:33 EDT Findings: No consolidation or effusion. Mild increase of lung markings is unchanged from prior examination. Normal size heart. No acute fracture. IMPRESSION: 1. No acute findings. Independent Historian Clinical information obtained from an independent historian. History obtained from or confirmed by: Spouse (girlfriend) External Record Review External record reviewed: Inpatient record, Office record and Outpatient record Discharge Plan Discharge Clinical Impression: Acute viral syndrome Patient Disposition: Home, Self-Care Instructions: Viral Syndrome (ED) Additional Instructions: Testing for flu, COVID, RSV are negative Labs are unremarkable X-ray shows no signs of infection Alternate Motrin Tylenol for pain or fever Increase fluids, rest Return for any worsening symptoms Prescriptions: New ibuprofen 600 mg tablet 600 mg PO Q6H PRN (Reason: fever or pain) Qty: 30 0RF acetaminophen [Tylenol] 325 mg tablet 650 mg PO Q4H PRN (Reason: fever or pain) Qty: 30 0RF ondansetron 4 mg tablet,disintegrating 4 mg PO Q6H PRN (Reason: nausea and vomiting) Qty: 12 0RF No Action ibuprofen 200 mg Tablet 400 mg PO Q6H PRN (Reason: Pain) doxycycline hyclate 100 mg capsule 100 mg PO BID 10 Days Qty: 20 0RF albuterol sulfate 90 mcg/actuation HFA aerosol inhaler 2 puff inhalation Q4-6H PRN (Reason: shortness of breath or wheezing) Qty: 8.5 0RF clobetasol [Temovate] 0.05 % ointment 1 appl topical BID Qty: 15 0RF diphenhydramine HCl [Benadryl] 25 mg capsule 25 mg PO TID PRN (Reason: itching) Qty: 20 0RF naproxen 500 mg tablet 500 mg PO BID PRN (Reason: pain) Qty: 14 0RF albuterol sulfate 90 mcg/actuation HFA aerosol inhaler 2 puff inhalation Q6H PRN (Reason: shortness of breath or wheezing) 7 Days Qty: 8.5 0RF ondansetron 4 mg tablet,disintegrating 4 mg PO Q8H PRN (Reason: nausea and vomiting) 7 Days Qty: 30 0RF Referrals: Physician,None [Primary Care Provider] - 1 week Print Language: Setswana
[2024-08-20 18:23] LABS: MANUAL DIFF FLAG NO
[2024-08-20 18:26] LABS: Basophils Absolute Auto 0.1 X10*3/uL (0.0-0.2); Basophils Percent Auto 0.5 % (0-2); Eosinophils Absolute Auto 0.1 X10*3/uL (0.0-0.4); Eosinophils Percent Auto 0.7 % (0-4); Hematocrit 42.1 % (42.0-52.0); Hemoglobin 14.5 g/dl (14.0-18.0); Imm Gran Abs Auto 0.04 X10*3/uL (0.00-0.03); Imm Gran Pct Auto 0.4 % (0.0-0.4); Lymphocytes Absolute Auto 0.7 X10*3/uL (1.2-4.9); Lymphocytes Percent Auto 6.6 % (20-40); Mean Corpuscular HGB Conc 34.4 g/dl (31.0-36.0); Mean Corpuscular Hemoglobin 28.5 pg (27.0-33.0); Mean Corpuscular Volume 82.9 fL (80.0-98.0); Mean Platelet Volume 10.7 fL (9.4-12.4); Monocytes Absolute Auto 0.9 X10*3/uL (0.1-1.2); Monocytes Percent Auto 8.6 % (2-11); Neutrophils Absolute Auto 9.2 x10*3/uL (2.0-8.3); Neutrophils Percent Auto 83.2 % (45-73); Platelet Count 167 X10*3/uL (160-400); Red Blood Count 5.08 X10*6/uL (4.60-5.80); Red Cell Distribution Width 12.7 % (11.0-16.0)
[2024-08-20 18:41] LABS: Alanine Aminotransferase 17 U/L (0-40); Albumin Level 4.8 g/dL (3.5-5.0); Alkaline Phosphatase 100 U/L (39-117); Anion Gap 11 (12-20); Aspartate Amino Transferase 19 U/L (5-37); Bilirubin Total 0.5 mg/dL (0.0-1.0); Blood Urea Nitrogen 9 mg/dL (9-16); Calcium 9.6 mg/dL (8.4-10.2); Carbon Dioxide 29 mmol/L (22-29); Chloride 105 mmol/L (96-108); Creatinine Clr Calc Pharmacy 131.2; Estimated Glomerular Filt Rate > 60; Glucose Random 98 mg/dL (60-115); Lipase 9 U/L (8-78); Potassium 3.7 mmol/L (3.3-5.1); Sodium 141 mmol/L (135-145); Total Protein 7.6 g/dL (6.5-8.0)
[2024-08-20 19:01] LABS: Influenza A PCR NEGATIVE (Negative); Influenza B PCR NEGATIVE (Negative); Resp Syncy Virus RNA Qual PCR NEGATIVE (Negative); SARS COV2 PCR INHOUSE NEGATIVE (Negative)
[2024-08-20] MEDS: 0.9 % Sodium Chloride 1,000 ML 999 ML IV (19:31)
[2024-08-20] MEDS: Ketorolac Tromethamine 15 MG/ML VIAL IVPUSH (19:31)
[2024-08-20] MEDS: ondansetron HCL 4 MG/2 ML VIAL IVPUSH (19:31)
[2024-08-20 20:32] VITALS: BP 108/49; PULSE 66; RESP 20; TEMP 36.9; O2SAT 95
[2024-08-20 20:56] VITALS: BP 108/49; PULSE 66; RESP 20; TEMP 36.9; O2SAT 95
== END 2024-08-20 20:56 | disposition home or self-care (01) ==
PROVIDERS: Physician Assistant; Emergency Provider Emergency Medicine
DX: B34.9 Viral infection, unspecified (principal); R11.2 Nausea with vomiting, unspecified; M79.10 Myalgia, unspecified site; R06.02 Shortness of breath; Z79.899 Other long term (current) drug therapy; Z03.818 Encounter for observation for suspected exposure to other biological agents ruled out
CPT/HCPCS: 0241U; 71046; 80053; 83690; 85025; 96361; 96374; 96375; 99284; J1885; J2405

== ENCOUNTER → 2024-08-20 19:16 | Outpatient (BNV) | payer OTHER, SELFPAY | PROVIDERS: Emergency Provider Emergency Medicine; Visit Provider Nuclear Medicine | DX: R06.02 Shortness of breath (principal); R11.10 Vomiting, unspecified | CPT/HCPCS: 71046 ==

== ENCOUNTER 2024-08-24 19:49 | Emergency (ER) | payer OTHER, SELFPAY ==
--- NOTE | ~2024-08-24 | XR_ITS ---
CLINICAL HISTORY: cough, dizziness 2 view chest x-ray Comparison: 08/20/2024 Findings: Lungs are clear without acute infiltrates. No pneumothorax. Heart size normal. No acute bony abnormalities. Impression: No acute processes This document has been electronically signed by: Jayjay Payan MD on 08/24/2024 21:31:33
[2024-08-24 19:51] VITALS: BP 123/64; PULSE 88; RESP 20; TEMP 37.2; O2SAT 98; BMI 21.4
--- NOTE | 2024-08-24 19:53 | ED.GENADULT ---
HPI - General Adult General Chief complaint: Upper Respiratory Symptoms Stated complaint: light headedness, loss of appetite, sweating Time Seen by Provider: 08/24/24 21:59 Source: patient Mode of arrival: ambulatory Limitations: no limitations History of Present Illness ED Provider: Dr. Kassy Monique HPI narrative: Patient comes to the emergency room complaining of fever chills, body aches, loss of appetite, nausea. Patient states that over last couple of days he has been using his daughter's inhaler. Patient states that he has been diagnosed with asthma in the past but in very rare occasions he needs albuterol. Patient complaining of nausea. Related Data Home Medications ?Medication ?Instructions ?Recorded ?Confirmed ibuprofen 200 mg tablet 400 mg PO Q6H PRN Pain 05/02/21 05/02/21 Previous Rx's ?Medication ?Instructions ?Recorded albuterol sulfate 90 mcg/actuation 2 puff inhalation Q4-6H PRN 04/25/21 aerosol inhaler shortness of breath or wheezing #8.5 grams doxycycline hyclate 100 mg capsule 100 mg PO BID 10 days #20 caps 07/05/21 clobetasol 0.05 % topical ointment 1 appl topical BID #15 grams 02/12/23 (Temovate) diphenhydramine HCl 25 mg capsule 25 mg PO TID PRN itching #20 caps 02/12/23 (Benadryl) naproxen 500 mg tablet 500 mg PO BID PRN pain #14 tabs 10/14/23 albuterol sulfate 90 mcg/actuation 2 puff inhalation Q6H PRN 02/08/24 aerosol inhaler shortness of breath or wheezing 7 days #8.5 grams ondansetron 4 mg disintegrating 4 mg PO Q8H PRN nausea and 02/08/24 tablet vomiting 7 days #30 tabs acetaminophen 325 mg tablet 650 mg (2 x 325 mg) PO Q4H PRN 08/20/24 (Tylenol) fever or pain #30 tabs ibuprofen 600 mg tablet 600 mg PO Q6H PRN fever or pain 08/20/24 #30 tabs ondansetron 4 mg disintegrating 4 mg PO Q6H PRN nausea and 08/20/24 tablet vomiting #12 tabs acetaminophen 500 mg tablet 500 mg PO Q6H PRN fever or pain 04/30/25 #20 tabs albuterol sulfate 90 mcg/actuation 2 puff inhalation Q4-6H PRN 08/24/24 aerosol inhaler shortness of breath or wheezing #8.5 grams ibuprofen 600 mg tablet 600 mg PO TID PRN fever or pain 08/24/24 #14 tabs ondansetron HCl 4 mg tablet 4 mg PO Q6H PRN nausea and 08/24/24 vomiting #10 tabs Allergies Allergy/AdvReac Type Severity Reaction Status Date / Time latex AdvReac Hives Verified 08/24/24 19:53 Review of Systems Review of Systems: Constitutional : No Weight loss, complaining of fever and chills, fatigue and generalized malaise , complaining of myalgias ENT/Mouth : No Hearing loss, No Ear Pain, No Nasal Congestion, No Sinus Pain, No Hoarseness, No sore throat, No Rhinorrhea, No Swallowing Difficulty Eyes: No Eye Pain, No Swelling, No Redness, No Foreign Body, No Discharge, No Vision Changes Cardiovascular : No Chest Pain, No SOB, No Dyspnea on Exertion, No Orthopnea, No Edema, No Palpitations Respiratory : No Cough, No Sputum, No Wheezing, No Smoke Exposure, No Dyspnea Gastrointestinal : Complaining of nausea, No Vomiting, No Diarrhea, No Constipation, No abdominal Pain, No Hematochezia, No Melena Genitourinary : no irregular bleeding, No Dysuria, No Urinary Frequency, No Hematuria, No Urinary Incontinence, No Urgency, No Flank Pain, No Urinary Flow Changes, No Hesitancy Musculoskeletal : No joint pain, complaining of Myalgias, No Joint Swelling Skin : No Skin Lesions, No rash Neuro : No Weakness, No Numbness, No Paresthesias, No Loss of Consciousness, No Dizziness, No Headache Psych : No Anxiety/Panic, No Depression, No SI/HI/AH/VH, No Social Issues, Heme/Lymph: No Bruising, No Bleeding,No Lymphadenopathy Endocrine : No Polyuria, No Polydipsia, No Temperature Intolerance [facility] Past Medical History Medical History GERD (gastroesophageal reflux disease) Asthma Marijuana abuse, continuous Surgical History No history of previous surgery Social History Social History Alcohol intake: never Patient Tobacco Use Status: Never used Tobacco Substance Use Type: Marijuana Advance Directives: No Advance Directives Information Provided: Yes Do you have a plan to hurt others: No Plan Current occupational status: employed 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 Oriented X3. No acute distress. Eyes: Pupils equal, round and reactive to light. ENT: Pharynx normal. Neck: Normal inspection. Neck supple. No lymph nodes noted. No crepitus CVS: Normal heart rate and rhythm. Pulses normal. Normal S1 and S2 Respiratory: No respiratory distress. Breath sounds normal. No Wheezing. No rales Abdomen: Soft and nontender. No rigidity. No distention. Skin: Skin warm and dry. Normal skin color. Normal skin turgor. Extremities: No lower extremity edema. No Lacerations. No Rash Neuro: Oriented X 3. No motor deficit. No sensory deficit. Moving all extremities. No slurred speech. CN 2 through 12 grossly intact Psych: calm, cooperative, normal affect Course Course Course Narrative: This is a Rapid Medical Examination (RME) performed by Betty Chang PA-C in triage. Full HPI, ROS, assessment and treatment plan per primary provider in the Main ED. 08/24/241953 TERI Baugh Hx: 29 yo male here for eval of myalgias, cough, and sore throat x1 week. seen here on 08/20/24 for same - unremarkable work up. discharged w/ suspected viral syndrome. taking OTC meds without relief. PE/vitals: afebrile Plan: viral/strep swabs, CXR Medical Decision Making Medical Decision Making MDM Narrative: My interpretation of labs: Patient tested positive for influenza B, negative for RSV COVID and strep Chest x-ray negative for infiltrates Patient's vitals normal, no shortness of breath, oxygen saturation 99% on room air Differential Diagnosis Differential Diagnoses: The differential diagnosis associated with the presentation includes (As above) Lab Data MDM Lab Attestation statement: I reviewed the patient's lab results. Labs: Lab Results 08/24/24 Range/Units 20:05 Influenza Type A (PCR) NEGATIVE (Negative) Influenza Type B (PCR) POSITIVE A (Negative) RSV RNA Qual (PCR) NEGATIVE (Negative) SARS-CoV-2 RNA (RT-PCR) NEGATIVE (Negative) S. pyogenes GrpA ROMEO Negative (Negative) Independent Interpretation I performed an independent interpretation of an: Plain X-Ray Radiology Impression Discussion of test interpretation with radiology: I have reviewed the radiologist's reading. Radiologist Impression: Lungs are clear without acute infiltrates. No pneumothorax. Heart size normal. No acute bony abnormalities. Impression: No acute processes Discharge Plan Discharge Clinical Impression: Influenza B Patient Disposition: Home, Self-Care Instructions: Influenza (ED) Additional Instructions: Please follow-up with your primary care physician tomorrow. If you have any worsening or new symptoms, please return to the emergency room or call 911 Prescriptions: New acetaminophen 500 mg tablet 500 mg PO Q6H PRN (Reason: fever or pain) Qty: 20 0RF ibuprofen 600 mg tablet 600 mg PO TID PRN (Reason: fever or pain) Qty: 14 0RF ondansetron HCl 4 mg tablet 4 mg PO Q6H PRN (Reason: nausea and vomiting) Qty: 10 0RF albuterol sulfate 90 mcg/actuation HFA aerosol inhaler 2 puff inhalation Q4-6H PRN (Reason: shortness of breath or wheezing) Qty: 8.5 0RF No Action ibuprofen 200 mg Tablet 400 mg PO Q6H PRN (Reason: Pain) doxycycline hyclate 100 mg capsule 100 mg PO BID 10 Days Qty: 20 0RF albuterol sulfate 90 mcg/actuation HFA aerosol inhaler 2 puff inhalation Q4-6H PRN (Reason: shortness of breath or wheezing) Qty: 8.5 0RF clobetasol [Temovate] 0.05 % ointment 1 appl topical BID Qty: 15 0RF diphenhydramine HCl [Benadryl] 25 mg capsule 25 mg PO TID PRN (Reason: itching) Qty: 20 0RF ibuprofen 600 mg tablet 600 mg PO Q6H PRN (Reason: fever or pain) Qty: 30 0RF acetaminophen [Tylenol] 325 mg tablet 650 mg PO Q4H PRN (Reason: fever or pain) Qty: 30 0RF ondansetron 4 mg tablet,disintegrating 4 mg PO Q6H PRN (Reason: nausea and vomiting) Qty: 12 0RF naproxen 500 mg tablet 500 mg PO BID PRN (Reason: pain) Qty: 14 0RF albuterol sulfate 90 mcg/actuation HFA aerosol inhaler 2 puff inhalation Q6H PRN (Reason: shortness of breath or wheezing) 7 Days Qty: 8.5 0RF ondansetron 4 mg tablet,disintegrating 4 mg PO Q8H PRN (Reason: nausea and vomiting) 7 Days Qty: 30 0RF Stand Alone Forms: Work/School Release Print Language: Pashto
[2024-08-24 20:21] LABS: IDNOW Serial# 55D5AD1C; Strep A Nucleic Acid Negative (Negative)
[2024-08-24 20:50] LABS: Influenza A PCR NEGATIVE (Negative); Influenza B PCR POSITIVE (Negative); Resp Syncy Virus RNA Qual PCR NEGATIVE (Negative); SARS COV2 PCR INHOUSE NEGATIVE (Negative)
[2024-08-24 20:56] VITALS: BP 105/60; PULSE 60; RESP 24; TEMP 36.9; O2SAT 99
[2024-08-24 22:08] VITALS: BP 119/69; PULSE 59; RESP 20; TEMP 37.1; O2SAT 99
[2024-08-24] MEDS: Acetaminophen 325 MG TABLET 650 MG PO (22:41)
[2024-08-24] MEDS: Ibuprofen 600 MG TABLET PO (22:41)
[2024-08-24 22:46] VITALS: BP 119/69; PULSE 59; RESP 20; TEMP 37.1; O2SAT 99
== END 2024-08-24 22:47 | disposition home or self-care (01) ==
PROVIDERS: Physician Assistant Medical; Emergency Provider Emergency Medicine
DX: J10.1 Influenza due to other identified influenza virus with other respiratory manifestations (principal); R05.9 Cough, unspecified; J02.9 Acute pharyngitis, unspecified; Z03.818 Encounter for observation for suspected exposure to other biological agents ruled out; J45.909 Unspecified asthma, uncomplicated; F12.10 Cannabis abuse, uncomplicated; Z79.899 Other long term (current) drug therapy
CPT/HCPCS: 0241U; 71046; 87651; 99283; 99284

== ENCOUNTER → 2024-08-24 19:52 | Outpatient (BNV) | payer OTHER, SELFPAY | PROVIDERS: Emergency Provider Emergency Medicine; Visit Provider Radiology Diagnostic Radiology | DX: R05.9 Cough, unspecified (principal); R42 Dizziness and giddiness | CPT/HCPCS: 71046 ==

== ENCOUNTER 2025-04-07 19:24 | Emergency (ER) | payer OTHER, SELFPAY ==
--- NOTE | ~2025-04-07 | XR_ITS ---
CLINICAL HISTORY: cough fever Chest X-ray, 1 View COMPARISON: CR/CA - XR CHEST 2V - 08/24/24 20:45 EDT FINDINGS: No consolidation. No pleural effusion. No pneumothorax. No cardiomegaly. No acute fracture. IMPRESSION: No acute findings. This document has been electronically signed by: Bryan Bustamante MD on 04/07/2025 22:29:31
[2025-04-07 19:39] VITALS: BP 111/55; PULSE 86; RESP 18; TEMP 37.4; O2SAT 98; BMI 20.4
--- NOTE | 2025-04-07 19:39 | ED_ITS ---
HPI - General Adult General Chief complaint: Upper Respiratory Symptoms Stated complaint: Bodyaches sweats Time Seen by Provider: 04/07/25 20:29 Source: patient Limitations: no limitations History of Present Illness ED Provider: Samia Jon PA-C HPI narrative: 29-year-old male with a history of asthma, depression and marijuana use presents with cough and cold symptoms over the past few days. Associated dry repetitive cough with wheezing at times. Generalized myalgias and subjective fever. He has sick contacts with similar symptoms. Related Data Home Medications ?Medication ?Instructions ?Recorded ?Confirmed ibuprofen 200 mg tablet 400 mg PO Q6H PRN Pain 05/0205/02/21 Previous Rx's ?Medication ?Instructions ?Recorded albuterol sulfate 90 mcg/actuation 2 puff inhalation Q 4-6H PRN 04/25/21 aerosol inhaler shortness of breath or wheez ing #8.5 grams doxycycline hyclate 100 mg capsule 100 mg PO BID 10 da ys #20 caps 07/05/21 clobetasol 0.05 % topical ointment 1 appl topical BID #15 grams 02/12/23 (Temovate) diphenhydramine HCl 25 mg capsule 25 mg PO TID PRN itc ruel #20 caps 02/12/23 (Benadryl) naproxen 500 mg tablet 500 mg PO BID PRN pain #14 t abs 10/14/23 albuterol sulfate 90 mcg/actuation 2 puff inhalation Q 6H PRN 02/08/24 aerosol inhaler shortness of breath or wheez ing 7 days #8.5 grams ondansetron 4 mg disintegrating 4 mg PO Q8H PRN nausea and 02/08/24 tablet vomiting 7 days #30 tabs acetaminophen 325 mg tablet 650 mg (2 x 325 mg) PO Q4H PRN 08/20/24 (Tylenol) fever or pain #30 tabs ibuprofen 600 mg tablet 600 mg PO Q6H PRN fever or p ain 08/20/24 #30 tabs ondansetron 4 mg disintegrating 4 mg PO Q6H PRN nausea and 08/20/24 tablet vomiting #12 tabs acetaminophen 500 mg tablet 500 mg PO Q6H PRN fever or pain 08/24/24 #20 tabs albuterol sulfate 90 mcg/actuation 2 puff inhalation Q 4-6H PRN 08/24/24 aerosol inhaler shortness of breath or wheez ing #8.5 grams ibuprofen 600 mg tablet 600 mg PO TID PRN fever or p ain 08/24/24 #14 tabs ondansetron HCl 4 mg tablet 4 mg PO Q6H PRN nausea and 08/24/24 vomiting #10 tabs albuterol sulfate 90 mcg/actuation 2 puff inhalation Q 4-6H PRN 04/07/25 aerosol inhaler (Ventolin HFA) shortness of breath or wheezing #8.5 grams azithromycin 250 mg tablet 250 mg PO DAILY 4 days #4 t abs 04/07/25 prednisone 20 mg tablet 40 mg (2 x 20 mg) PO DAILY # 8 tabs 04/07/25 Allergies Allergy/AdvReac Type Severity Reaction Status Date / Time latex AdvReac Hives Verified 04/07/25 19:41 Review of Systems Review of Systems: Yes all other systems are reviewed and are negative Constitutional: Constitutional: Reports fatigue, Reports fever(s) and Reports malaise Cardiovascular: Cardiovascular: Denies chest pain and Denies dyspnea Respiratory: Respiratory: Denies chest congestion, Reports cough, Denies dyspnea and Reports wheezing Gastrointestinal: Gastrointestinal: Denies abdominal pain, Denies nausea and Denies vomiting Endocrine: Endocrine: Reports fatigue Allergic/Immunologic: Allergic/Immunologic: Reports wheezing PMFSH Past Medical History Attestation statement: The following information was validated with the patient. Medical History GERD (gastroesophageal reflux disease) Asthma Marijuana abuse, continuous Surgical History No history of previous surgery Social History Social History Alcohol intake: never Patient Tobacco Use Status: Never used Tobacco Substance Use Type: Marijuana Advance Directives: No Advance Directives Information Provided: Yes Current occupational status: employed 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 ED Vital Signs: Vital Signs - 24 hr 04/07/25 19:39 04/07/25 22:49 Temperature 99.3 F 99.3 F Pulse Rate 86 86 Respiratory Rate 18 18 Blood Pressure 111/55 L 111/55 L Pulse Oximetry 98 98 Oxygen Delivery Method Room Air Room Air BMI result Body Mass Index 20.4 Const Other: Alert Orientation/consciousness: patient oriented x3 Resp Other: Lungs clear to auscultation, active bronchospasm, no wheeze Effort & Inspection: normal respiratory effort Cardio Other: Normal peripheral perfusion Skin Other: Warm dry no rash Neuro General: patient oriented x3, gait normal, no focal motor deficits and CN's II- XI intact bilaterally Psych Other: Cooperative Course Course Course Narrative: Rapid medical examination performed in triage by Phuong Ramos PA-C: Patient is a 29 year old assigned male at presenting to the emergency department with a cough and body aches. Detailed physical exam and review of systems are deferred to the pre billing clinician. Swabs ordered. Patient placed back in the waiting room pending room availability and results. Medications Administered Discontinued Medications Generic Name Dose Route Start Last Admin Trade Name Freq PRN Reason Stop Dose Admin Azithromycin 500 mg 04/07/25 22:35 04/07/25 22:47 Azithromycin 500 Mg Tablet PO 04/07/25 22:36 500 mg ONCE ONE Administration Ondansetron HCl 4 mg 04/07/25 22:21 04/07/25 22:46 Ondansetron Odt 4 Mg Tab.Rapdis TRANSLINGU 04/07/25 22:22 4 mg ONCE ONE Administration Prednisone 40 mg 04/07/25 21:44 04/07/25 22:47 Prednisone 20 Mg Tablet PO 04/07/25 21:45 40 mg ONCE ONE Administration Medical Decision Making Medical Decision Making [facility] Narrative: 29-year-old male with a history of asthma, depression and marijuana use presents with cough and cold symptoms over the past few days. Associated dry repetitive cough with wheezing at times. Generalized myalgias and subjective fever. He has sick contacts with similar symptoms. Problem: Asthma, marijuana use History: Per patient I have considered the following differential diagnoses: Viral syndrome, pneumonia, bronchitis, asthma exacerbation Plan: Viral panel ordered from triage it is negative, adding on a chest x-ray. We will be treating the patient for bronchitis, adding on a Z-Damián given his marijuana use, he does not use tobacco. I have independently reviewed the following tests: Labs: Viral panel negative CXR: FINDINGS: No consolidation. No pleural effusion. No pneumothorax. No cardiomegaly. No acute fracture. IMPRESSION: No acute findings. Differential Diagnosis Differential Diagnoses: The differential diagnosis associated with the presentation includes See [facility] Admission/Observation Consideration of admission/observation: Escalation of care including admission/observation considered Not applicable Lab Data [facility] Lab Attestation statement: I reviewed the patient's lab results. Labs: Lab Results 04/07/25 Range/Units 19:48 Influenza Type A (PCR) NEGATIVE (Negative) Influenza Type B (PCR) NEGATIVE (Negative) RSV RNA Qual (PCR) NEGATIVE (Negative) SARS-CoV-2 RNA (RT-PCR) NEGATIVE (Negative) Radiology Impression Discussion of test interpretation with radiology: I have reviewed the radiologist's reading. Discharge Plan Discharge Clinical Impression: Bronchitis, Viral infection Patient Disposition: Home, Self-Care Instructions: Acute Bronchitis (ED), Viral Syndrome (ED) Additional Instructions: You are being treated for bronchitis likely secondary to underlying viral syndrome. See home care instructions. The chest x-ray was clear you do not have pneumonia, you were screened for influenza COVID and RSV, our viral panel was negative. There are numerous respiratory viruses that circulating within the community. Take the azithromycin as directed. Take the steroid as directed. Use the inhaler as needed. Follow up with your primary care provider as needed. Prescriptions: New albuterol sulfate [Ventolin HFA] 90 mcg/actuation HFA aerosol inhaler 2 puff inhalation Q4-6H PRN (Reason: shortness of breath or wheezing) Qty: 8.5 0RF prednisone 20 mg tablet 40 mg PO DAILY Qty: 8 0RF azithromycin 250 mg tablet 250 mg PO DAILY 4 Days Qty: 4 0RF Rx Instructions: start on day 2 of therapy No Action ibuprofen 200 mg Tablet 400 mg PO Q6H PRN (Reason: Pain) doxycycline hyclate 100 mg capsule 100 mg PO BID 10 Days Qty: 20 0RF albuterol sulfate 90 mcg/actuation HFA aerosol inhaler 2 puff inhalation Q4-6H PRN (Reason: shortness of breath or wheezing) Qty: 8.5 0RF clobetasol [Temovate] 0.05 % ointment 1 appl topical BID Qty: 15 0RF diphenhydramine HCl [Benadryl] 25 mg capsule 25 mg PO TID PRN (Reason: itching) Qty: 20 0RF ibuprofen 600 mg tablet 600 mg PO Q6H PRN (Reason: fever or pain) Qty: 30 0RF acetaminophen [Tylenol] 325 mg tablet 650 mg PO Q4H PRN (Reason: fever or pain) Qty: 30 0RF ondansetron 4 mg tablet,disintegrating 4 mg PO Q6H PRN (Reason: nausea and vomiting) Qty: 12 0RF naproxen 500 mg tablet 500 mg PO BID PRN (Reason: pain) Qty: 14 0RF albuterol sulfate 90 mcg/actuation HFA aerosol inhaler 2 puff inhalation Q6H PRN (Reason: shortness of breath or wheezing) 7 Days Qty: 8.5 0RF ondansetron 4 mg tablet,disintegrating 4 mg PO Q8H PRN (Reason: nausea and vomiting) 7 Days Qty: 30 0RF acetaminophen 500 mg tablet 500 mg PO Q6H PRN (Reason: fever or pain) Qty: 20 0RF ibuprofen 600 mg tablet 600 mg PO TID PRN (Reason: fever or pain) Qty: 14 0RF ondansetron HCl 4 mg tablet 4 mg PO Q6H PRN (Reason: nausea and vomiting) Qty: 10 0RF albuterol sulfate 90 mcg/actuation HFA aerosol inhaler 2 puff inhalation Q4-6H PRN (Reason: shortness of breath or wheezing) Qty: 8.5 0RF Stand Alone Forms: Work/School Release Interventions: ED Discharge Assessment Last Done: 04/07/25 22:49 Discharge Date/Time: 04/07/25 22:52 Print Language: Frisian
[2025-04-07 20:50] LABS: Resp Syncy Virus RNA Qual PCR NEGATIVE (Negative); SARS COV2 PCR INHOUSE NEGATIVE (Negative)
--- OUTSIDE RECORDS SUMMARY | 2025-04-07 20:51 | XMS_ITS | Clinical Summary ---
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 Role Phone Unavailable Primary Care Provider Unavailabl e Surgical History Surgery Date Site/Laterality Comments OTHER SURGICAL HISTORY PROCEDURE: DENIES PREVIOUS SURGERY Medical History Medical History Date Comments Asthma 02/06/2011 DX:Asthma Behavior problem 01/08/2015 DX:Behavior pro blem; COMMENT: 01-09 in therapy monthly since 2012 with [facility] Family History Medical History Relation Name Comments Mental illness Father Diabetes Father's side 1 Puncle Diabetes Maternal Grandfather Heart attack Maternal Grandfather hypoten sive 79y/o Hypertension Maternal Grandmother heart p roblems Mental illness Mother's side 1 mat uncle bipolar Other cancer Mother's side 2 MGGF stomach 80s Diabetes Paternal Grandmother Relation Name Status Comments Brother Alive jimy baltazar 04/28 sib 03-14-93 non-obstructive HCM bipolar/psycosis/manic depressive Father Alive erickson 12-16-74 sc hizophrenia Father's side 1 Father's side 2 Maternal Grandfather Maternal Grandmother Mother Alive moisés baltazar [id number] home fatty liver Mother's side 1 Mother's side 2 Mother's side 3 Paternal Grandmother Sister Alive elda vieira s ib asthma /depression prozac Social History Tobacco Use Types Packs/Day Years Used Date Smoking Tobacco: Never Smokeless Tobacco: Never Alcohol Use Standard Drinks/Week Comments Not Asked 0 (1 standard drink = 0.6 oz pur e alcohol) Sex and Gender Information Value Date Recorded Sex Assigned at Not on file Legal Sex Male 11:37 PM EST Gender Identity Not on file Sexual Orientation Not on file Plan of Treatment Health Maintenance Due Date Last Done Comments HPV Vaccines (3 - Male 3-dose series) 04/02/2015 01/08/2015, 07/04/2013 DTaP,Tdap,and Td Vaccines (3 - Td or Tdap) 11/03/2019 11/02/2009, 01/07/2007 HIV Screening 03/30/2022 Hepatitis C Screening 03/30/2022 Social Influencers of Health Screening 03/30/2022 Depression Screening 04/27/2024 COVID-19 Vaccine ( season) 2024 Influenza Vaccine (#1) 2024 5, 07/04/2013, 03/04/2012, Additional history exists RSV Immunization Adult Patients (1 - 1-dose 75+ series) 2072 Hepatitis B Vaccines Completed 03/07/1998, 1997, 1997 HIB Vaccines Completed 09/27/1998, 02/25, 1997, Additional history exists Varicella Vaccines Completed 04/15/2007, 01/07/2007 Hepatitis A Vaccines Completed 02/06/2011, 11/03/19 10 IPV Vaccines Completed 01/08/2015, 06/1998, 03/07/1998, Additional history exists MMR Vaccines Completed 01/08/2015, 06/1998, 06/11/1998 Meningococcal ACWY Vaccine Completed 01/08/2015, Meningococcal B Vaccine Aged Out No l onger eligible based on patient's age to complete this topic Pneumococcal Vaccine: Pediatrics (0 to 5 Years) and At-Risk Patients (6 to 49 Years) Aged Out No longer eligible based on patient's age to complete this topic RSV Immunization Patients Under 20 months Aged Out No longer eligible based on patient's age to complete this topic
[2025-04-07 22:49] VITALS: BP 111/55; PULSE 86; RESP 18; TEMP 37.4; O2SAT 98
== END 2025-04-07 22:52 | disposition home or self-care (01) ==
PROVIDERS: Physician Assistant Medical; Emergency Provider Emergency Medicine
DX: J20.8 Acute bronchitis due to other specified organisms (principal); R05.9 Cough, unspecified; Z03.818 Encounter for observation for suspected exposure to other biological agents ruled out; Z79.899 Other long term (current) drug therapy
CPT/HCPCS: 71045; 87637; 99282; 99283

== ENCOUNTER → 2025-04-07 21:44 | Outpatient (BNV) | payer OTHER, SELFPAY | PROVIDERS: Emergency Provider Emergency Medicine; Visit Provider Radiology Diagnostic Radiology | DX: R05.9 Cough, unspecified (principal); R50.9 Fever, unspecified | CPT/HCPCS: 71045 ==